=== PATIENT | male | born 1995 | race Caucasian/White ===

== ENCOUNTER 2020-07-10 13:53 | Emergency (ER) | payer BC, MEDICAID ==
[~2020-07-10] VITALS: Ht 175.3 cm; Wt 68.4 kg
--- NOTE | 2020-07-10 14:34 | REP ---
INDICATION: TRAUMA LEFT THUMB PAIN. COMPARISON: None. TECHNIQUE: Four views FINDINGS: Four views of the left thumb demonstrate normal bones, joints and soft tissues.. No fracture or subluxation is seen. No opaque foreign body noted. IMPRESSION: Negative left thumb series. <Electronically signed by Ignacio De Dios > 07/10/20 [id number]
[2020-07-10 14:48] VITALS: BP 125/78
== END 2020-07-10 15:15 | disposition home or self-care (01) ==
LOC: M ED 13:53
DX: S63.622A Sprain of interphalangeal joint of left thumb, initial encounter (principal); X58.XXXA Exposure to other specified factors, initial encounter; Y92.099 Unspecified place in other non-institutional residence as the place of occurrence of the external cause; Y93.9 Activity, unspecified; Y99.9 Unspecified external cause status; F17.200 Nicotine dependence, unspecified, uncomplicated; J30.9 Allergic rhinitis, unspecified

== ENCOUNTER 2020-07-31 09:34 | Emergency (ER) | payer BC ==
[~2020-07-31] VITALS: Ht 175.3 cm; Wt 69.8 kg
[2020-07-31 09:35] VITALS: BP 125/82
[2020-07-31] MEDS ORDERED: PROT20TA11 PO (09:54)
[2020-07-31] MEDS ORDERED: MONT5TAB2 (09:54)
[2020-07-31] MEDS ORDERED: CETI-24 (09:54)
[2020-07-31] MEDS ORDERED: HYDR25TAB (09:54)
[2020-07-31] MEDS ORDERED: SUCR1TA PO (09:54)
[2020-07-31] MEDS ORDERED: ANUS2.5C2 TOP (10:36)
[2020-07-31] MEDS ORDERED: MIRA3350 PO (10:36)
== END 2020-07-31 10:49 | disposition home or self-care (01) ==
LOC: M ED 09:34
DX: K64.5 Perianal venous thrombosis (principal); K62.5 Hemorrhage of anus and rectum; F17.200 Nicotine dependence, unspecified, uncomplicated; J45.909 Unspecified asthma, uncomplicated; Z79.899 Other long term (current) drug therapy; Z88.8 Allergy status to other drugs, medicaments and biological substances

== ENCOUNTER 2020-10-20 17:04 | Emergency (ER) | payer BC ==
[~2020-10-20] VITALS: Ht 175.3 cm; Wt 70.5 kg
[~2020-10-20 17:04] MED LIST: ANUS2.5C2 TOP; CETI-24; HYDR-3490; MIRA3350 PO; MONT10TA10; PROT20TA11 PO; SUCR1TA PO
--- OUTSIDE RECORDS SUMMARY | 2020-10-20 17:13 | CCD ---
Author Author [facility] Organization [facility] Address Unknown Phone Unavailable Care Team Providers Care Home Health Outreach Coordinator Name Role Phone Yudi Gallego Unavailable PROBLEMS Type Condition ICD9-CM Code [id number] Code Onset Dates Condition S tatus SNOMED Code Notes Problem Allergic rhinitis, seasonal J30.2 Active 3674 75131 Problem ADD (attention deficit disorder) F98.8 Active 367026957 Problem Constipation by delayed colonic transit K59.01 Active 68647691 Problem Chronic rhinitis J31.0 Active 44556350 Problem Sore throat J02.9 Active 975565561 Problem Asthma, unspecified asthma s everity, unspecified whether complicated, unspecified whether persistent J45.909 Active 28477 7001 Problem GERD without esophagitis K21.9 Active 7932798 05 Problem Smoking F17.200 Active 56697971 Problem Anxiety about health F41.8 Active 494964447 Problem Essential hypertension I10 Active 80871002 ALLERGIES Allergen (clinical drug ingredient) Drug/Non Drug Allergy do cumented on EMR Reaction Allergy Type Onset Date Status environmental sneezing Non Drug Allergy Activ e Gastrografin([facility] Code:[address]-11) vomiting Drug Aller gy Active ENCOUNTERS from 1993 to 2020-08-22 Encounter Location Date Provider Diagnosis [address] [address] Aug, Yudi Gallego Dysphonia R49.0 ; Productive cough R05 ; Hemorrhoids, unspecified hemorrhoid type K64.9 ; Asthma, unspecified asthma severity, unspecified whether complicated, unspecified whether persistent J45.909 ; GERD without esophagitis K21.9 and Smoking F17.200 IMMUNIZATIONS No Information SOCIAL HISTORY Sex Assigned At : Social History Observation Description Sex Assigned At Unknown REASON FOR REFERRAL No Information VITAL SIGNS Height 68.5 in Aug, Weight 155.6 lbs Aug, BMI 23.31 kg/m2 Aug, Heart Rate 102 /min Aug, Respiratory Rate 18 /min Aug, Oximetry 99 % Aug, Blood pressure systolic 130 mmHg Aug, Blood pressure diastolic 84 mmHg Aug, MEDICATIONS Medication SIG (Take, Route, Frequency, Duration) Notes Start Da te End Date Status Ibuprofen 800 MG 1 tablet Orally Three times a day for 30 day(s) Active Flonase 50 MCG/ACT 2 sprays Nasally Once a day for 90 days Oct, Active Singulair 10 MG 1 tablet in the evening Orally Once a day for 90 days Active Cetirizine HCl 10 MG 1 tablet as needed Orally Once a day for 90 days Mar, Active Carafate 1 GM 1 tablet at bedtime on an em pty stomach before meals Orally Twice a day for 30 day(s) Active Hydrochlorothiazide 25 MG 1 tablet Orally Once a day for 90 days Active Protonix 40 MG 1 tablet Orally Once a day for 90 days Active PROCEDURES No Information RESULTS No Results REASON FOR VISIT 3 week follow up MEDICAL (GENERAL) HISTORY Type Description Date Medical History GERD Medical History Allergic Rhinitis Medical History ADHD Medical History Bipolar disorder Medical History Anxiety Medical History HTN Surgical History Damari age 3 weeks Hospitalization History Surgical needs Hospitalization History PUD Hospitalization History Kidney infection Goals Section No Information Health Concerns No Information MEDICAL EQUIPMENT No Information MENTAL STATUS No Information FUNCTIONAL STATUS No Information ASSESSMENTS Encounter Date Diagnosis Assessment Notes Treatment Notes Treatm ent Clinical Notes Aug, Dysphonia (ICD-10 - R49.0) Encouraged to follow up with Dr. Payne as scheduled decrease or stop smoking Aug, Productive cough (ICD-10 - R05) chronic-stop smoking follow up with ent Aug, Hemorrhoids, unspecified hemorrhoid type (ICD-10 - K64.9) The patient had a thrombosed hemorrhoid. Advised to avoid straining during bowel movements. Encouraged sitz bath. Instructed to use stool softeners if he gets constipation. Advised to follow up if symptoms worsen or persist. Precautions given and patient verbalized understanding. Follow up as needed Aug, Asthma, unspecified asthma s everity, unspecified whether complicated, unspecified whether persistent (ICD-10 - J45.909) The patient has a history of asthma and is using regular inhaler as needed. Recommended to continue with current management. Follow up as needed Aug, GERD without esophagitis (ICD-10 - K21.9) Continue to use Protonix daily. May use Tums/Rolaids as needed for acute flares. Avoid trigger foods including spicy, acidic foods, peppermint and chocolate. Keep food diary to determine personal triggers. Do not eat or drink 2 hours before bed. Keep head of bed elevated. Weight loss will improve reflux. Aug, Smoking (ICD-10 - F17.200) The patient is a smoker, smokes 1 ppd. Discussed the risks and dangers of smoking. Strongly encouraged patient to quit smoking. Discussed various cessation options including nicotine patches, Chantix, and Zyban. Patient will get back to us about cessation Aug, Other Patient agrees w ith plan as outlined above. All questions were answered to the best of the provider's ability. Patient verbalized understanding of instructions and education provided. Patient to follow up at next appointment. Patient agrees if symptoms worsen or fail to improve they will return to the clinic or go to the ER Liana Ramesh, scribing the following service on behalf of CARIE Miller, on 08/22/2020 PLAN OF TREATMENT Treatment Notes Assessment Notes Clinical Notes Dysphonia Encouraged to follow up with Dr. Payne as scheduleddecrease or stop smoking Productive cough chronic-stop smoking follow up with ent Hemorrhoids, unspecified hemorrhoid type The patient h ad a thrombosed hemorrhoid. Advised to avoid straining during bowel movements. Encouraged sitz bath. Instructed to use stool softeners if he gets constipation. Advised to follow up if symptoms worsen or persist. Precautions given and patient verbalized understanding. Follow up as needed Asthma, unspecified asthma severity, uns pecified whether complicated, unspecified whether persistent The patient has a history of asthma and is using regular inhaler as needed. Recommended to continue with current management. Follow up as needed GERD without esophagitis Continue to use Protonix anton ly. May use Tums/Rolaids as needed for acute flares. Avoid trigger foods including spicy, acidic foods, peppermint and chocolate. Keep food diary to determine personal triggers. Do not eat or drink 2 hours before bed. Keep head of bed elevated. Weight loss will improve reflux. Smoking The patient is a smoker, smo kes 1 ppd. Discussed the risks and dangers of smoking. Strongly encouraged patient to quit smoking. Discussed various cessation options including nicotine patches, Chantix, and Zyban. Patient will get back to us about cessation Next Appt Details 3 Months Reason:follow up Provider Name:Michael Payne, 09-15 03:00:00 PM, [address] [place] [address], [phone], Provider Name:Yudi Gallego, 2020-10-03 02:30:00 PM, [address] [place] [address], [phone], Follow Up:3 Monthsfollow up Insurance Providers Payer Name Payer Address Payer Phone Insured Name Patient Relati onship to Insured Coverage Start Date Coverage End Date BCBS OUT OF STATE [address] [address] [facility] [address] DULCE GILLIAM self
--- OUTSIDE RECORDS SUMMARY | 2020-10-20 17:13 | CCD ---
Author Author [facility] Organization [facility] Address Unknown Phone Unavailable Care Team Providers Care Digital Campaign Manager Name Role Phone Arline Calle Unavailable PROBLEMS Type Condition ICD9-CM Code [id number] Code Onset Dates Condition S tatus SNOMED Code Notes Problem Sore throat J02.9 Active 729022447 Problem Allergic rhinitis, seasonal J30.2 Active 3674 83593 Problem ADD (attention deficit disorder) F98.8 Active 988271489 Problem Essential hypertension I10 Active 05517704 Problem Chronic rhinitis J31.0 Active 48819781 Problem Constipation by delayed colonic transit K59.01 Active 63103620 Problem GERD without esophagitis K21.9 Active 1463304 05 Problem Smoking F17.200 Active 89489310 Problem Anxiety about health F41.8 Active 524173460 ALLERGIES Allergen (clinical drug ingredient) Drug/Non Drug Allergy do cumented on EMR Reaction Allergy Type Onset Date Status environmental sneezing Non Drug Allergy Activ e Gastrografin([facility] Code:[address]-61) vomiting Drug Aller gy Active ENCOUNTERS from 1993 to 2020-08-01 Encounter Location Date Provider Diagnosis [address] [address] Aug, Arline Calle IMMUNIZATIONS No Information SOCIAL HISTORY Sex Assigned At : Social History Observation Description Sex Assigned At Unknown REASON FOR REFERRAL No Information VITAL SIGNS No information MEDICATIONS Medication SIG (Take, Route, Frequency, Duration) Notes Start Da te End Date Status Carafate 1 GM 1 tablet at bedtime on an em pty stomach before meals Orally Twice a day for 30 day(s) Active Singulair 10 MG 1 tablet in the evening Orally Once a day for 90 days Active Ibuprofen 800 MG 1 tablet Orally Three times a day for 30 day(s) Active Mucinex 600 MG 1 tablet as needed Orally every 12 hrs for 7 days Active Cetirizine HCl 10 MG 1 tablet as needed Orally Once a day for 90 days Mar, Active Hydrochlorothiazide 25 MG 1 tablet Orally Once a day for 90 days Active Protonix 40 MG 1 tablet Orally Once a day for 90 days Active RA Nicotine Gum 4 MG 1 piece for 30 minute as nee ded Mouth/Throat 24 time(s) a day for 90 days Jul, Active Flonase 50 MCG/ACT 2 sprays Nasally Once a day for 90 days Oct, Active PROCEDURES No Information RESULTS No Results REASON FOR VISIT Chest Xray Results MEDICAL (GENERAL) HISTORY Type Description Date Medical History GERD Medical History Allergies Medical History ADHD Medical History Bipolar disorder Medical History Anxiety Medical History HTN Surgical History Damari age 3 weeks Hospitalization History Surgical needs Hospitalization History PUD Hospitalization History Kidney infection Goals Section No Information Health Concerns No Information MEDICAL EQUIPMENT No Information MENTAL STATUS No Information FUNCTIONAL STATUS No Information ASSESSMENTS No Information PLAN OF TREATMENT Medication Medication Name Sig Start Date Stop Date Hydrochlorothiazide 25 MG 1 tablet Orally Once a day for 90 days Protonix 40 MG 1 tablet Orally Once a day for 90 days Flonase 50 MCG/ACT 2 sprays Nasally Once a day for 90 days 2015 RA Nicotine Gum 4 MG 1 piece for 30 minute as nee ded Mouth/Throat 24 time(s) a day for 90 days Jul, Singulair 10 MG 1 tablet in the evening Orally Once a day for 90 days Cetirizine HCl 10 MG 1 tablet as needed Orally Once a day fo r 90 days Mar, Next Appt Details Provider Name:Kristina Ruiz, 2020-08-02 0 3:00:00 PM, [address] [place] [address], [id number], Provider Name:Yudi Gallego, 2020-08-22 02:30:00 PM, [address] [place] [address], [phone], Insurance Providers Payer Name Payer Address Payer Phone Insured Name Patient Relati onship to Insured Coverage Start Date Coverage End Date BCBS OUT OF STATE [address] [address] [facility] [id number] DULCE GILLIAM
--- OUTSIDE RECORDS SUMMARY | 2020-10-20 17:13 | CCD ---
Author Author [facility] Organization [facility] Address Unknown Phone Unavailable Care Team Providers Care Firer Diesel Locomotive Name Role Phone Michael Payne Unavailable PROBLEMS Type Condition ICD9-CM Code [id number] Code Onset Dates Condition S tatus SNOMED Code Notes Problem ADD (attention deficit disorder) F98.8 Active 686580296 Problem Constipation by delayed colonic transit K59.01 Active 98111396 Problem GERD without esophagitis K21.9 Active 2296169 05 Problem Asthma, unspecified asthma s everity, unspecified whether complicated, unspecified whether persistent J45.909 Active 55683 7001 Problem Allergic rhinitis, seasonal J30.2 Active 3674 91958 Problem Chronic sinusitis, unspecified location J32.9 Active 05945995 Problem Sore throat J02.9 Active 147999604 Problem Smoking F17.200 Active 39051802 Problem Anxiety about health F41.8 Active 706913933 Problem Essential hypertension I10 Active 23821998 Problem Chronic rhinitis J31.0 Active 00500889 ALLERGIES Allergen (clinical drug ingredient) Drug/Non Drug Allergy do cumented on EMR Reaction Allergy Type Onset Date Status environmental sneezing Non Drug Allergy Activ e Gastrografin([facility] [place] [place] Code:[address]-82) vomiting Drug Aller gy Active ENCOUNTERS from 1993 to 2020-09-15 Encounter Location Date Provider Diagnosis [facility] [address] [place] [id number] 2020 Michael Payne Chronic sinusitis, unspecified location J32.9 and Hoarseness R49.0 IMMUNIZATIONS No Information SOCIAL HISTORY Sex Assigned At : Social History Observation Description Sex Assigned At Unknown REASON FOR REFERRAL No Information VITAL SIGNS Height 68.5 in Sep, Weight 152.4 lbs Sep, BMI 22.83 kg/m2 Sep, Temperature 98.6 degrees Fahrenheit Sep, Heart Rate 88 /min Sep, Respiratory Rate 17 /min Sep, Oximetry 96 % Sep, Blood pressure systolic 128 mmHg Sep, Blood pressure diastolic 70 mmHg Sep, MEDICATIONS Medication SIG (Take, Route, Frequency, Duration) Notes Start Da te End Date Status Ibuprofen 800 MG 1 tablet Orally Three times a day for 30 day(s) Active Protonix 40 MG 1 tablet Orally Once a day for 90 days Active Singulair 10 MG 1 tablet in the evening Orally Once a day for 90 days Active Hydrochlorothiazide 25 MG 1 tablet Orally Once a day for 90 days Active Flonase 50 MCG/ACT 2 sprays Nasally Once a day for 90 days Oct, Active Cipro 250 MG 3 tablet Orally every 12 hrs for 14 day(s) Sep, Active Carafate 1 GM 1 tablet at bedtime on an em pty stomach before meals Orally Twice a day for 30 day(s) Active Cetirizine HCl 10 MG 1 tablet as needed Orally Once a day for 90 days Mar, Active Fluticasone Propionate 50 MCG/ACT 2 spray in each nost ril Nasally Once a day for 30 day(s) Sep, Active PROCEDURES No Information RESULTS No Results REASON FOR VISIT scope MEDICAL (GENERAL) HISTORY Type Description Date Medical [...] Notes Treatment Notes Treatm ent Clinical Notes Sep, Chronic sinusitis, unspecified location (ICD-10 - J32.9) Sep, Hoarseness (ICD-10 - R49.0) Sep, Other Time Spent with Patient: 30 minutes PLAN OF TREATMENT Medication Medication Name Sig Start Date Stop Date Fluticasone Propionate 50 MCG/ACT 2 spray in each nost ril Nasally Once a day for 30 day(s) Sep, Cipro 250 MG 3 tablet Orally every 12 hrs for 14 day(s) 15 Kan n, 2020 Next Appt Details prn Reason: Provider Name:Yudi Gallego, 2020-10-03 02:30:00 PM, [address] [place] [address], [phone], Insurance Providers Payer Name Payer Address Payer Phone Insured Name Patient Relati onship to Insured Coverage Start Date Coverage End Date BCBS OUT OF STATE [address] [address] [facility] [address] DULCE GILLIAM self
--- OUTSIDE RECORDS SUMMARY | 2020-10-20 17:13 | CCD ---
Author Author [facility] Organization [facility] Address Unknown Phone Unavailable Care Team Providers Care Verification Lead Name Role Phone Michael Payne Unavailable PROBLEMS Type Condition ICD9-CM Code [id number] Code Onset Dates Condition S tatus SNOMED Code Notes Problem Allergic rhinitis, seasonal J30.2 Active 3674 84133 Problem ADD (attention deficit disorder) F98.8 Active 697925051 Problem Constipation by delayed colonic transit K59.01 Active 64670563 Problem Chronic rhinitis J31.0 Active 42244679 Problem Sore throat J02.9 Active 134825842 Problem Asthma, unspecified asthma s everity, unspecified whether complicated, unspecified whether persistent J45.909 Active 97798 7001 Problem GERD without esophagitis K21.9 Active 8586576 05 Problem Smoking F17.200 Active 88310666 Problem Anxiety about health F41.8 Active 322765853 Problem Essential hypertension I10 Active 08468267 ALLERGIES Allergen (clinical drug ingredient) Drug/Non Drug Allergy do cumented on EMR Reaction Allergy Type Onset Date Status environmental sneezing Non Drug Allergy Activ e Gastrografin([facility] Code:[address]-12) vomiting Drug Aller gy Active ENCOUNTERS from 1993 to 2020-08-22 Encounter Location Date Provider Diagnosis [address] [address] Aug, Michael Payne IMMUNIZATIONS No Information SOCIAL HISTORY Sex Assigned [...] Information RESULTS No Results REASON FOR VISIT need to reschedule appoint MEDICAL (GENERAL) HISTORY Type Description Date Medical [...] Information ASSESSMENTS No Information PLAN OF TREATMENT Next Appt Details Provider Name:Michael Payne, 09-15 03:00:00 PM, [address] [place] [address], [phone], Provider Name:Yudi Gallego, 2020-10-03 02:30:00 PM, [address] [place] [address], [phone], Insurance Providers Payer Name Payer Address Payer Phone Insured Name Patient Relati onship to Insured Coverage Start Date Coverage End Date BCBS OUT OF STATE [address] [address] [facility] [address] DULCE GILLIAM self
--- OUTSIDE RECORDS SUMMARY | 2020-10-20 17:13 | CCD ---
Author Author [facility] Organization [facility] Address Unknown Phone Unavailable Care Team Providers Care Independent Film Maker Name Role Phone Arline Calle Unavailable PROBLEMS Type Condition ICD9-CM Code [id number] Code Onset Dates Condition S tatus SNOMED Code Notes Problem Sore throat J02.9 Active 673485850 Problem Allergic rhinitis, seasonal J30.2 Active 3679 11505 Problem ADD (attention deficit disorder) F98.8 Active 006450186 Problem Essential hypertension I10 Active 78097688 Problem Chronic rhinitis J31.0 Active 58540451 Problem Constipation by delayed colonic transit K59.01 Active 20445732 Problem GERD without esophagitis K21.9 Active 9585328 05 Problem Smoking F17.200 Active 06583991 Problem Anxiety about health F41.8 Active 215981152 ALLERGIES Allergen (clinical drug ingredient) Drug/Non Drug Allergy do cumented on EMR Reaction Allergy Type Onset Date Status environmental sneezing Non Drug Allergy Activ e Gastrografin([facility] Code:[address]-35) vomiting Drug Aller gy Active ENCOUNTERS from 1993 to 2020-07-23 Encounter Location Date Provider Diagnosis [address] [address] Jul, Arline Calle Annual physical exam Z00.00 ; Abnormal sputum R09.3 ; Cough R05 ; Chest wall pain R07.89 ; Essential hypertension I10 ; Hoarseness R49.0 ; Chronic rhinitis J31.0 ; Smoking F17.200 ; GERD without esophagitis K21.9 ; Anxiety about health F41.8 and Influenza vaccination declined Z28.21 IMMUNIZATIONS No Information SOCIAL HISTORY Sex Assigned At : Social History Observation Description Sex Assigned At Unknown REASON FOR REFERRAL No Information VITAL SIGNS Height 68.5 in Jul, Weight 152.6 lbs Jul, BMI 22.86 kg/m2 Jul, Temperature 98.8 degrees Fahrenheit Jul, Heart Rate 96 /min Jul, Respiratory Rate 20 /min Jul, Oximetry 98 % Jul, Blood pressure systolic 148 mmHg Jul, Blood pressure diastolic 76 mmHg Jul, MEDICATIONS Medication SIG (Take, Route, Frequency, Duration) [...] Information RESULTS No Results REASON FOR VISIT transition of care MEDICAL (GENERAL) HISTORY Type Description Date Medical [...] Notes Treatment Notes Treatm ent Clinical Notes Jul, Annual physical exam (ICD-10 - Z00.00) - Follow up yearly for annual PE - Follow up as directed for routine condition monitoring - Follow up as needed for acute injury/illness/questions/concerns Health Maintenance: - Ensure diet high in fruits, vegetables, lean protein - Moderate alcohol, caffiene - Avoid tobacco - Obtain at least 120 mins of heart raising physical activity weekly - Wear seatbelt - Use CO and smoke detectors in home Screenings: - Start colonoscopy at age 48 unless otherwise directed - Obtain yearly fasting labs Jul, Abnormal sputum (ICD-10 - R09.3) Will get updated CXR and sputum sample for analysis. New referral entered to return to Pulmonary Jul, Cough (ICD-10 - R05) As above Jul, Chest wall pain (ICD-10 - R07.89) Discussed with patient that it is likely his chronic cough is causing his chest wall pain. Discussed his isolated symptoms to times of coughing and reviewed pathophysiology. Discussed if he were to develop shortness of breath, left arm pain, jaw pain, nausea, or vomiting then seek ER evaluation Jul, Essential hypertension (ICD-10 - I10) Blood pressure in the clinic today is elevated at 148/76 mmHg. Refilled his hydrochlorothiazide 25 mg one tablet once a day. Continue to take medications as prescribed. Things that you can do at home to improve and maintain a healthy blood pressure: - Decrease salt intake - Increase water intake - Decrease alcohol and caffeine intake - Increase exercise - Weight loss. Monitor blood pressure at home. Go to ER if you notice chest pain, shortness of breath, left arm pain, jaw pain, nausea, or vomiting EKG indicated NSR Jul, Hoarseness (ICD-10 - R49.0) Referral entered for eval Jul, Chronic rhinitis (ICD-10 - J31.0) Refilled his medications today. Recommended to continue with current management. Discussed how uncontrolled rhinitis can contribute to cough, hoarseness and sputum production Jul, Smoking (ICD-10 - F17.200) The patient is a smoker, smokes 1 ppd. Discussed the risks and dangers of smoking. Strongly encouraged patient to quit smoking. He is interested in starting nicotine gum. Medication sent in. Discussed how to utilize the gum to help with smoking cessation Jul, GERD without esophagitis (ICD-10 - K21.9) Continue to use Protonix 40 mg one tablet once a day and Carafate 1 gm one tablet b.i.d. May use Tums/Rolaids as needed for acute flares. Avoid trigger foods including spicy, acidic foods, peppermint and chocolate. Keep food diary to determine personal triggers. Do not eat or drink 2 hours before bed. Keep head of bed elevated. Weight loss will improve reflux. Jul, Anxiety about health (ICD-10 - F41.8) Encouraged to find family and friend support to talk to. Pt to report to the ED immediately with any thoughts of self-harm and/or harm to others. Pt v/u and agree. DALI positive. Discussed with patient. He reports this is very much associated with his health at this time. Declines to resume eval/treatment of mental health condition. Stable at this time. PHQ-9 negative. Jul, Influenza vaccination declined (ICD-10 - Z28.21) The patient declines influenza vaccination. He made aware that influenza is in the area and he will notify office if desired in the future. Jul, Other Patient agrees w ith plan as [...] scribing the following service on behalf of Arline Calle NP, on 07/21/2020. PLAN OF TREATMENT Medication Medication Name Sig [...] a day fo r 90 days Mar, Treatment Notes Assessment Notes Clinical Notes Annual physical exam - Follow up yearly for katie ramirez PE - Follow up as directed for routine condition monitoring - Follow up as needed for acute injury/illness/questions/concerns Health Maintenance: - Ensure diet high in frui ts, vegetables, lean protein - Moderate alcohol, caffiene - Avoid tobacco - Obtain at least 120 mins of heart raising physical activity weekly - Wear seatbelt - Use CO and smoke detectors in home Screenings: - Start colonoscopy at age 48 unless otherwise directed - Obtain yearly fasting labs Abnormal sputum Will get updated CXR and sputum sample for analysis. New referral entered to return to Pulmonary Cough As above Chest wall pain Discussed with miguel angel elizondo that it is likely his chronic cough is causing his chest wall pain. Discussed his isolated symptoms to times of coughing and reviewed pathophysiology. Discussed if he were to develop shortness of breath, left arm pain, jaw pain, nausea, or vomiting then seek ER evaluation Essential hypertension Blood pressure in the clinic today is elevated at 148/76 mmHg. Refilled his hydrochlorothiazide 25 mg one tablet once a day. Continue to take medications as prescribed. Things that you can do at home to improve and maintain a healthy blood pressure: - Decrease salt intake - Increase water intake - Decrease alcohol and caffeine intake - Increase exercise - Weight loss. Monitor blood pressure at home. Go to ER if you notice chest pain, shortness of breath, left arm pain, jaw pain, nausea, or vomiting EKG indicated NSR Hoarseness Referral entered for eval Chronic rhinitis Refilled his medications kian scruggs. Recommended to continue with current management. Discussed how uncontrolled rhinitis can contribute to cough, hoarseness and sputum production Smoking The patient is a smoker, smo kes 1 ppd. Discussed the risks and dangers of smoking. Strongly encouraged patient to quit smoking. He is interested in starting nicotine gum. Medication sent in. Discussed how to utilize the gum to help with smoking cessation GERD without esophagitis Continue to use Protonix 40 mg one tablet once a day and Carafate 1 gm one tablet b.i.d. May use Tums/Rolaids as needed for acute flares. Avoid trigger foods including spicy, acidic foods, peppermint and chocolate. Keep food diary to determine personal triggers. Do not eat or drink 2 hours before bed. Keep head of bed elevated. Weight loss will improve reflux. Anxiety about health Encouraged to find family an d friend support to talk to. Pt to report to the ED immediately with any thoughts of self-harm and/or harm to others. Pt v/u and agree. DALI positive. Discussed with patient. He reports this is very much associated with his health at this time. Declines to resume eval/treatment of mental health condition. Stable at this time. PHQ-9 negative. Influenza vaccination declined The patient declines in fluenza vaccination. He made aware that influenza is in the area and he will notify office if desired in the future. Treatment Notes Test Name Order Date CHEST 2 VIEWS 2020-07-23 COMPLETE METABOLIC PROLFILE 2020-07-23 TSH 2020-07-23 LIPID PROFILE 2020-07-23 FREE T4 2020-07-23 CBC W/DIFF 2020-07-23 URINALYSIS 2020-07-23 SPUTUM,CYTOLOGY 2020-07-23 EKG 2020-07-23 Next Appt Details 2-4 weeks Reason:Results Provider Name:Arline Calle, 2020-08-01 0 02:30:00 PM, [address] [place] [address], [phone], Follow Up:2-4 weeksResults Insurance Providers Payer Name Payer Address Payer Phone Insured Name Patient Relati onship to Insured Coverage Start Date Coverage End Date BCBS OUT OF STATE [address] [address] [facility] [phone] [address] self
--- OUTSIDE RECORDS SUMMARY | 2020-10-20 17:13 | CCD ---
Author Author [facility] Organization [facility] Address Unknown Phone Unavailable Care Team Providers Care Phd Internship Name Role Phone Arline Calle Unavailable PROBLEMS Type Condition ICD9-CM Code [id number] Code Onset Dates Condition S tatus SNOMED Code Notes Problem Allergic rhinitis, seasonal J30.2 Active 3674 87110 Problem ADD (attention deficit disorder) F98.8 Active 914193324 Problem Constipation by delayed colonic transit K59.01 Active 35585274 Problem Chronic rhinitis J31.0 Active 93995876 Problem Sore throat J02.9 Active 446146407 Problem Asthma, unspecified asthma s everity, unspecified whether complicated, unspecified whether persistent J45.909 Active 29530 7001 Problem GERD without esophagitis K21.9 Active 6586181 05 Problem Smoking F17.200 Active 52914936 Problem Anxiety about health F41.8 Active 632519257 Problem Essential hypertension I10 Active 18681869 ALLERGIES Allergen (clinical drug ingredient) Drug/Non Drug Allergy do cumented on EMR Reaction Allergy Type Onset Date Status environmental sneezing Non Drug Allergy Activ e Gastrografin([facility] Code:[address]-47) vomiting Drug Aller gy Active ENCOUNTERS from 1993 to 2020-09-05 Encounter Location Date Provider Diagnosis [address] [address] Sep, Arline Calle IMMUNIZATIONS No Information SOCIAL HISTORY [...] Information RESULTS No Results REASON FOR VISIT Labs MEDICAL (GENERAL) HISTORY Type Description Date Medical [...] Details Provider Name:Michael Payne, 09-15 03:00:00 PM, [address] [place] [address], [id number], Provider Name:Yudi Gallego, 2020-10-03 02:30:00 PM, [address] [place] [address], [phone], Insurance Providers Payer Name Payer Address Payer Phone Insured Name Patient Relati onship to Insured Coverage Start Date Coverage End Date BCBS OUT OF STATE [address] [address] [facility] [id number] [address] [address]
--- OUTSIDE RECORDS SUMMARY | 2020-10-20 17:13 | CCD ---
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 Name Role Phone Emma BAY PA Unavailable Unavailable Emma BAY CHRISTEDI PA Unavailable Unavailable Emma BAY CHRISTOPHER PA Unavailable Unavailable SYMENOWEmma CHRISTOPHER PA Unavailable Unavailable SYMENOW, G CHRISTOPHER PA Unavailable Unavailable Emma BAY CHRISTOPHER PA Unavailable Unavailable ROBBIEENOEmma Ramon CHRISTOPHER PA Unavailable Unavailable SYMENOWEmma CHRISTOPHER PA Unavailable Unavailable SYMENOW G CHRISTOPHER PA Unavailable Unavailable SYMENOW, G CHRISTOPHER PA Unavailable Unavailable SYMENOW, G CHRISTOPHER PA Unavailable Unavailable SYMENOW, G CHRISTOPHER PA Unavailable Unavailable SYMENOW, G CHRISTOPHER PA Unavailable Unavailable SYMENOW, G CHRISTOPHER PA Unavailable Unavailable SYMENOW, G CHRISTOPHER PA Unavailable Unavailable SYMENOW, G CHRISTOPHER PA Unavailable Unavailable SYMENOW, G CHRISTOPHER PA Unavailable Unavailable Luc, L Arline PIPELINE OPERATOR Unavailable Unavailable Isle, L Arline PIPELINE OPERATOR Unavailable Unavailable Luc, L Arline PIPELINE OPERATOR Unavailable Unavailable Isle, L Arline PIPELINE OPERATOR Unavailable Unavailable Luc, L Arline PIPELINE OPERATOR Unavailable Unavailable Luc, L Arline PIPELINE OPERATOR Unavailable Unavailable Isle, L Arline PIPELINE OPERATOR Unavailable Unavailable Luc, L Arline PIPELINE OPERATOR Unavailable Unavailable Luc, L Arline PIPELINE OPERATOR Unavailable Unavailable Isle, L Arline PIPELINE OPERATOR Unavailable Unavailable Isle, L Arline PIPELINE OPERATOR Unavailable Unavailable Luc, L Arline PIPELINE OPERATOR Unavailable Unavailable Isle, L Arline PIPELINE OPERATOR Unavailable Unavailable Luc, L Arline PIPELINE OPERATOR Unavailable Unavailable Isle, L Arline PIPELINE OPERATOR Unavailable Unavailable Isle, L Arline PIPELINE OPERATOR Unavailable Unavailable Isle, L Arline PIPELINE OPERATOR Unavailable Unavailable Isle, L Arline PIPELINE OPERATOR Unavailable Unavailable Luc, L Arline PIPELINE OPERATOR Unavailable Unavailable Luc, L Arline PIPELINE OPERATOR Unavailable Unavailable Luc, L Arline PIPELINE OPERATOR Unavailable Unavailable Luc, L Arline PIPELINE OPERATOR Unavailable Unavailable Isle, L Arline PIPELINE OPERATOR Unavailable Unavailable Isle, L Arline PIPELINE OPERATOR Unavailable Unavailable Isle, L Arline PIPELINE OPERATOR Unavailable Unavailable Isle, L Arline PIPELINE OPERATOR Unavailable Unavailable Isle, L Arline PIPELINE OPERATOR Unavailable Unavailable Isle, L Arline PIPELINE OPERATOR Unavailable Unavailable Isle, L Arline PIPELINE OPERATOR Unavailable Unavailable Isle, L Arline PIPELINE OPERATOR Unavailable Unavailable Luc, L Arline PIPELINE OPERATOR Unavailable Unavailable Isle, L Arline PIPELINE OPERATOR Unavailable Unavailable Coon, T Gregory PA-C Unavailable Unavailable Coon, T Gregory PA-C Unavailable Unavailable Coon, T Gregory PA-C Unavailable Unavailable Coon, T Gregory PA-C Unavailable Unavailable Coon, T Gregory PA-C Unavailable Unavailable Coon, T Gregory PA-C Unavailable Unavailable Coon, T Gregory PA-C Unavailable Unavailable Coon, T Gregory PA-C Unavailable Unavailable Coon, T Gregory PA-C Unavailable Unavailable Coon, T Gregory PA-C Unavailable Unavailable Coon, T Gregory PA-C Unavailable Unavailable Coon, T Gregory PA-C Unavailable Unavailable Coon, T Gregory PA-C Unavailable Unavailable Coon, T Gregory PA-C Unavailable Unavailable Coon, T Gregory PA-C Unavailable Unavailable Coon, T Gregory PA-C Unavailable Unavailable Coon, T Gregory PA-C Unavailable Unavailable Coon, T Gregory PA-C Unavailable Unavailable Coon, T Gregory PA-C Unavailable Unavailable Coon, T Gregory PA-C Unavailable Unavailable Coon, T Gregory PA-C Unavailable Unavailable Coon, T Gregory PA-C Unavailable Unavailable Coon, T Gregory PA-C Unavailable Unavailable Coon, T Gregory PA-C Unavailable Unavailable Coon, T Gregory PA-C Unavailable Unavailable Coon, T Gregory PA-C Unavailable Unavailable Coon, T Gregory PA-C Unavailable Unavailable Coon, T Gregory PA-C Unavailable Unavailable Coon, T Gregory PA-C Unavailable Unavailable Coon, T Gregory PA-C Unavailable Unavailable Coon, T Gregory PA-C Unavailable Unavailable Coon, T Gregory PA-C Unavailable Unavailable Coon, T Gregory PA-C Unavailable Unavailable Coon, T Gregory PA-C Unavailable Unavailable Coon, T Gregory PA-C Unavailable Unavailable Coon, T Gregory PA-C Unavailable Unavailable Coon, T Gregory PA-C Unavailable Unavailable PRISCILLA, L ERIN PA Unavailable Unavailable PRISCILLA, L ERIN PA Unavailable Unavailable PRISCILLA, L ERIN PA Unavailable Unavailable PRISCILLA, L ERIN PA Unavailable Unavailable PRISCILLA, L ERIN PA Unavailable Unavailable PRISCILLA, L ERIN PA Unavailable Unavailable PRISCILLA, L ERIN PA Unavailable Unavailable PRISCILLA, L ERIN PA Unavailable Unavailable PRISCILLA, L ERIN PA Unavailable Unavailable PRISCILLA, L ERIN PA Unavailable Unavailable PRISCILLA, L ERIN PA Unavailable Unavailable PRISCILLA, L ERIN PA Unavailable Unavailable PRISCILLA, L ERIN PA Unavailable Unavailable PRISCILLA, L ERIN PA Unavailable Unavailable PRISCILLA, L ERIN PA Unavailable Unavailable PRISCILLA, L ERIN PA Unavailable Unavailable PRISCILLA, L ERIN PA Unavailable Unavailable PRISCILLA, L ERIN PA Unavailable Unavailable PRISCILLA, L ERIN PA Unavailable Unavailable BLANCHARD SR, LEI JENKINS MD Unavailable Unavailable BLANCHARD SR, LEI JENKINS MD Unavailable Unavailable BLANCHARD SR, LEI JENKINS MD Unavailable Unavailable BLANCHARD SR, LEI JENKINS MD Unavailable Unavailable BLANCHARD SR, LEI JENKINS MD Unavailable Unavailable BLANCHARD SR, LEI JENKINS MD Unavailable Unavailable BLANCHARD SR, LEI JENKINS MD Unavailable Unavailable BLANCHARD SR, LEI JENKINS MD Unavailable Unavailable BLANCHARD SR, LEI JENKINS MD Unavailable Unavailable BLANCHARD SR, LEI JENKINS MD Unavailable Unavailable BLANCHARD SR, LEI JENKINS MD Unavailable Unavailable BLANCHARD SR, LEI JENKINS MD Unavailable Unavailable BLANCHARD SR, LEI JENKINS MD Unavailable Unavailable BLANCHARD SR, LEI JENKINS MD Unavailable Unavailable BLANCHARD SR, LEI JENKINS MD Unavailable Unavailable BLANCHARD SR, LEI JENKINS MD Unavailable Unavailable BLANCHARD SR, LEI JENKINS MD Unavailable Unavailable BLANCHARD SR, LEI JENKINS MD Unavailable Unavailable BLANCHARD SR, LEI JENKINS MD Unavailable Unavailable BLANCHARD SR, LEI JENKINS MD Unavailable Unavailable BLANCHARD SR, LEI JENKINS MD Unavailable Unavailable BLANCHARD SR, LEI JENKINS MD Unavailable Unavailable BLANCHARD SR, LEI JENKINS MD Unavailable Unavailable BLANCHARD SR, LEI JENKINS MD Unavailable Unavailable BLANCHARD SR, LEI JENKINS MD Unavailable Unavailable BLANCHARD SR, LEI JENKINS MD Unavailable Unavailable BLANCHARD SR, LEI JENKINS MD Unavailable Unavailable BLANCHARD SR, LEI JENKINS MD Unavailable Unavailable BLANCHARD SR, LEI JENKINS MD Unavailable Unavailable BLANCHARD SR, LEI JENKINS MD Unavailable Unavailable BLANCHARD SR, LEI JENKINS MD Unavailable Unavailable BLANCHARD SR, LEI JENKINS MD Unavailable Unavailable BLANCHARD SR, LEI JENKINS MD Unavailable Unavailable BLANCHARD SR, LEI JENKINS MD Unavailable Unavailable BLANCHARD SR, LEI JENKINS MD Unavailable Unavailable BLANCHARD SR, LEI JENKINS MD Unavailable Unavailable BLANCHARD SR, LEI JENKINS MD Unavailable Unavailable BLANCHARD SR, LEI JENKINS MD Unavailable Unavailable BLANCHARD SR, LEI JENKINS MD Unavailable Unavailable BLANCHARD SR, LEI JENKINS MD Unavailable Unavailable BLANCHARD SR, LEI JENKINS MD Unavailable Unavailable BLANCHARD SR, LEI JENKINS MD Unavailable Unavailable BLANCHARD SR, LEI JENKINS MD Unavailable Unavailable BLANCHARD SR, LEI JENKINS MD Unavailable Unavailable BLANCHARD SR, LEI JENKINS MD Unavailable Unavailable BLANCHARD SR, LEI JENIKNS MD Unavailable Unavailable BLANCHARD SR, LEI JENKINS MD Unavailable Unavailable BLANCHARD SR, LEI JENKINS MD Unavailable Unavailable BLANCHARD SR, LEI JENKINS MD Unavailable Unavailable BLANCHARD SR, LEI JENKINS MD Unavailable Unavailable BLANCHARD SR, LEI JENKINS MD Unavailable Unavailable BLANCHARD SR, LEI JENKINS MD Unavailable Unavailable BLANCHARD SR, LEI JENKINS MD Unavailable Unavailable BLANCHARD SR, LEI JENKINS MD Unavailable Unavailable [place], Yudi RPA-C Unavailable Unavailable [place], Yudi RPA-C Unavailable Unavailable [place], Yudi RPA-C Unavailable Unavailable [place], Yudi RPA-C Unavailable Unavailable [place], Yudi RPA-C Unavailable Unavailable [place], Yudi RPA-C Unavailable Unavailable [place], Yudi RPA-C Unavailable Unavailable [place], Yudi RPA-C Unavailable Unavailable [place], Yudi RPA-C Unavailable Unavailable [place], Yudi RPA-C Unavailable Unavailable [place], Yudi RPA-C Unavailable Unavailable [place], Yudi RPA-C Unavailable Unavailable [place], Yudi RPA-C Unavailable Unavailable [place], Yudi RPA-C Unavailable Unavailable [place], Yudi RPA-C Unavailable Unavailable Zion Bond Unavailable Unavailable Varun, L Cassandra PA Unavailable Unavailable Varun, L Cassandra PA Unavailable Unavailable Varun, L Cassandra PA Unavailable Unavailable Varun, L Cassandra PA Unavailable Unavailable Varun, L Cassandra PA Unavailable Unavailable Varun, L Cassandra PA Unavailable Unavailable Varun, L Cassandra PA Unavailable Unavailable Varun, L Cassandra PA Unavailable Unavailable Varun, L Cassandra PA Unavailable Unavailable Varun, L Cassandra PA Unavailable Unavailable Varun, L Cassandra PA Unavailable Unavailable Varun, L Cassandra PA Unavailable Unavailable Varun, L Cassandra PA Unavailable Unavailable Varun, L Csasandra PA Unavailable Unavailable Varun, L Cassandra PA Unavailable Unavailable Varun, L Cassandra PA Unavailable Unavailable Varun, L Cassandra PA Unavailable Unavailable Varun, L Cassandra PA Unavailable Unavailable Varun, L Cassandra PA Unavailable Unavailable Varun, L Cassandra PA Unavailable Unavailable Varun, L Cassandra PA Unavailable Unavailable Varun, L Cassandra PA Unavailable Unavailable Varun, L Cassandra PA Unavailable Unavailable Varun, L Cassandra PA Unavailable Unavailable Varun, L Cassandra PA Unavailable Unavailable Varun, L Cassandra PA Unavailable Unavailable Varun, L Cassandra PA Unavailable Unavailable Varun, L Cassandra PA Unavailable Unavailable Varun, L Cassandra PA Unavailable Unavailable Varun, L Cassandra PA Unavailable Unavailable Varun, L Cassandra PA Unavailable Unavailable Varun, L Cassandra PA Unavailable Unavailable Varun, L Cassandra PA Unavailable Unavailable Varun, L Cassandra PA Unavailable Unavailable Varun, L Cassandra PA Unavailable Unavailable Varun, L Cassandra PA Unavailable Unavailable Varun, L Cassandra PA Unavailable Unavailable Varun, L Cassandra PA Unavailable Unavailable Varun, L Cassandra PA Unavailable Unavailable Varun, L Cassandra PA Unavailable Unavailable Varun, L Cassandra PA Unavailable Unavailable Varun, L Cassandra PA Unavailable Unavailable Varun, L Cassandra PA Unavailable Unavailable Varun, L Cassandra PA Unavailable Unavailable Varun, L Cassandra PA Unavailable Unavailable Varun, L Cassandra PA Unavailable Unavailable Varun, L Cassandra PA Unavailable Unavailable Varun, L Cassandra PA Unavailable Unavailable Varun, L Cassandra PA Unavailable Unavailable Varun, L Cassandra PA Unavailable Unavailable Varun, L Cassandra PA Unavailable Unavailable Varun, L Cassandra PA Unavailable Unavailable Varun, L Cassandra PA Unavailable Unavailable Varun, L Cassandra PA Unavailable Unavailable Varun, L Cassandra PA Unavailable Unavailable Varun, L Cassandra PA Unavailable Unavailable Varun, L Cassandra PA Unavailable Unavailable Varun, L Cassandra PA Unavailable Unavailable Varun, L Cassandra PA Unavailable Unavailable Varun, L Cassandra PA Unavailable Unavailable Varun, L Cassandra PA Unavailable Unavailable MOUSTAPHA, @ JOCELYNE Unavailable Unavailable COLE, @ MICHAELA Unavailable Unavailable KAVININ, Alexi. MOHAN Unavailable [phone] WERBLIN, Alexi. MOHAN Unavailable [phone] WERBLIN, AlexiPeter MOHAN Unavailable [phone] WERBLIN, AlexiPeter MOHAN Unavailable [phone] WERBLIN, AlexiPeter MOHAN Unavailable [phone] Sara, Reginayannick W Kristina RECORDIST-C Unavailable Unavailabl e Sara, Reginayannick W Kristina RECORDIST-C Unavailable Unavailabl e Sara, Reginayannick W Kristina RECORDIST-C Unavailable Unavailabl e Sara, Reginayannick W Kristina RECORDIST-C Unavailable Unavailabl e Sara, Reginayannick W Kristina RECORDIST-C Unavailable Unavailabl e Sara, Reginayannick W Kristina RECORDIST-C Unavailable Unavailabl e Sara, Reginayannick W Kristina RECORDIST-C Unavailable Unavailabl e Sara, Reginayannick W Kristina RECORDIST-C Unavailable Unavailabl e Sara, Reginah W Kristina RECORDIST-C Unavailable Unavailabl e Sara, Reginayannick W Kristina RECORDIST-C Unavailable Unavailabl e Sara, Reginayannick W Kristina RECORDIST-C Unavailable Unavailabl e Sara, Reginayannick W Kristina RECORDIST-C Unavailable Unavailabl e Sara, Reginayannick W Kristina RECORDIST-C Unavailable Unavailabl e Sara, Reginayannick W Kristina RECORDIST-C Unavailable Unavailabl e Sara, Reginayannick W Kristina RECORDIST-C Unavailable Unavailabl e Sara, Gabby Acevedo RECORDIST-C Unavailable Unavailabl e Sara, Gabby Lopeze RECORDIST-C Unavailable Unavailabl e Sara, Gabby Lopeze RECORDIST-C Unavailable Unavailabl e Sara, Gabby Lopeze RECORDIST-C Unavailable Unavailabl e Sara, Gabby Lopeze RECORDIST-C Unavailable Unavailabl e Sara, Gabby Lopeze RECORDIST-C Unavailable Unavailabl e Sara, Gabby Calderonyce RECORDIST-C Unavailable Unavailabl e Sara, Gabby Calderonyce RECORDIST-C Unavailable Unavailabl e Sara, Gabby Lopeze RECORDIST-C Unavailable Unavailabl e Sara, Gabby Calderonyce RECORDIST-C Unavailable Unavailabl e Sara, Gabby Lopeze RECORDIST-C Unavailable Unavailabl e Sara, Gabby Acevedo RECORDIST-C Unavailable Unavailabl e Sara, Gabby Lopeze RECORDIST-C Unavailable Unavailabl e Sara, Gabby Calderonyce RECORDIST-C Unavailable Unavailabl e Sara, Gabby Acevedo RECORDIST-C Unavailable Unavailabl e Sara, Gabby Acevedo RECORDIST-C Unavailable Unavailabl e Sara, Gabby Calderonyce RECORDIST-C Unavailable Unavailabl e FISHER, ADRIANA LAKE Unavailable Unavailable Isle, L Arline PIPELINE OPERATOR Unavailable Unavailable Luc, L Arline PIPELINE OPERATOR Unavailable Unavailable Luc, L Arline PIPELINE OPERATOR Unavailable Unavailable Isle, L Arline PIPELINE OPERATOR Unavailable Unavailable Isle, L Arline PIPELINE OPERATOR Unavailable Unavailable Isle, L Arline PIPELINE OPERATOR Unavailable Unavailable Luc, L Arline PIPELINE OPERATOR Unavailable Unavailable Luc, L Arline PIPELINE OPERATOR Unavailable Unavailable Isle, L Arline PIPELINE OPERATOR Unavailable Unavailable Isle, L Arline PIPELINE OPERATOR Unavailable Unavailable Isle, L Arline PIPELINE OPERATOR Unavailable Unavailable Isle, L Arline PIPELINE OPERATOR Unavailable Unavailable Luc, L Arline PIPELINE OPERATOR Unavailable Unavailable Luc, L Arline PIPELINE OPERATOR Unavailable Unavailable Isle, L Arline PIPELINE OPERATOR Unavailable Unavailable Isle, L Arline PIPELINE OPERATOR Unavailable Unavailable Luc, L Arline PIPELINE OPERATOR Unavailable Unavailable Luc, L Arline PIPELINE OPERATOR Unavailable Unavailable Luc, L Arline PIPELINE OPERATOR Unavailable Unavailable Isle, L Arline PIPELINE OPERATOR Unavailable Unavailable Isle, L Arline PIPELINE OPERATOR Unavailable Unavailable Luc, L Arline PIPELINE OPERATOR Unavailable Unavailable Luc, L Arline PIPELINE OPERATOR Unavailable Unavailable Isle, L Arline PIPELINE OPERATOR Unavailable Unavailable Luc, L Arline PIPELINE OPERATOR Unavailable Unavailable Luc, L Arline PIPELINE OPERATOR Unavailable Unavailable Luc, L Arline PIPELINE OPERATOR Unavailable Unavailable Luc, L Arline PIPELINE OPERATOR Unavailable Unavailable Isle, L Arline PIPELINE OPERATOR Unavailable Unavailable Luc, L Arline PIPELINE OPERATOR Unavailable Unavailable Isle, L Arline PIPELINE OPERATOR Unavailable Unavailable Luc, L Arline PIPELINE OPERATOR Unavailable Unavailable Re-disclosure Warning The records that you are about to access may contain information from federally-assisted alcohol or drug abuse programs. If such information is present, then the following federally mandated warning applies: This information has been disclosed to you from records protected by federal confidentiality rules (42 CFR part 2). The federal rules prohibit you from making any further disclosure of this information unless further disclosure is expressly permitted by the written consent of the person to whom it pertains or as otherwise permitted by 42 CFR part 2. A general authorization for the release of medical or other information is NOT sufficient for this purpose. The Federal rules restrict any use of the information to criminally investigate or prosecute any alcohol or drug abuse patient.The records that you are about to access may contain highly sensitive health information, the redisclosure of which is protected by Article 27-F of the [facility] Public Health law. If you continue you may have access to information: Regarding HIV / AIDS; Provided by facilities licensed or operated by the [facility] Office of Mental Health; or Provided by the [facility] Office for People With Developmental Disabilities. If such information is present, then the following [facility] mandated warning applies: This information has been disclosed to you from confidential records which are protected by state law. State law prohibits you from making any further disclosure of this information without the specific written consent of the person to whom it pertains, or as otherwise permitted by law. Any unauthorized further disclosure in violation of state law may result in a fine or half-way sentence or both. A general authorization for the release of medical or other information is NOT sufficient authorization for further disc losure. Encounters Encounter Providers Location Date Indications Data Source(s ) Outpatient Attender: MICHAELA GALVAN 09/15/2020 02:54:00 PM [facility] 09/15/2020 12:00:00 AM EST eCW1 ([facility]) Outpatient Attender: Arline FOLEY ER-LAB-PNP 09/14/2020 12:00:00 PM [facility] Outpatient [facility] 09/12/2020 12:00:00 AM EST eCW1 ([facility]) Outpatient Attender: Arline Calle RNPReferrer: Migue FOLEY EMERGENCY ROOM-LAB 09/08/2020 09:45:00 AM EST - 09/08/2020 09:45:00 AM [facility] Outpatient [facility] 09/05/2020 12:00:00 AM EST eCW1 ([facility]) Outpatient Attender: Yudi Gallego RPA-C 08/22/2020 02:15: 00 PM [facility] Outpatient [facility] 08/22/2020 12:00:00 AM EST eCW1 ([facility]) Outpatient [facility] 08/09/2020 12:00:00 AM EST eCW1 ([facility]) Outpatient Attender: JOCELYNE GERARD 08/03/2020 01:30:0 0 PM [facility] Outpatient Attender: Kristina Ruiz RECORDIST-C 08/02/2020 02:43:0 0 PM [facility] Outpatient [facility] 08/02/2020 12:00:00 AM EST eCW1 ([facility]) Outpatient [facility] 08/01/2020 12:00:00 AM EST eCW1 ([facility]) Outpatient [facility] 08/01/2020 12:00:00 AM EST eCW1 ([facility]) Outpatient Attender: Arline Calle RNPReferrer: Arline FOLEY 07/31/2020 04:55:00 PM EST - 07/31/2020 04:55:00 PM [facility]: Arline FOLEY 07/21/2020 03:00:00 PM [facility] Outpatient [facility] 07/21/2020 12:00:00 AM EST eCW1 ([facility]) Emergency Attender: ALEKSANDRA FISHERReferrer: GREGORY Bang SR 07/20/2019 02:51:00 PM [facility] - 07/20/2019 03:12:00 PM [facility] Patient discharged. Emergency Attender: ALEKSANDRA FISHERReferrer: GREGORY Bang SR 02/05/2019 01:15:00 PM EDT - 02/05/2019 01:45:00 PM EDT [facility] Patient discharged. Emergency Attender: JOCELYNE BAY PAReferrer: GREGORY BLANCHARD SR 07/28/2018 09:24:00 AM EST - 07/28/2018 10:29:00 AM [facility] Emergency Attender: JOCELYNE BAY PAReferrer : GREGORY BLANCHARD EMERGENCY ROOM-ER 01/19/2018 08:54:00 PM EDT - 01/19/2018 10:42:00 PM [facility] Emergency Attender: ERIN DARNELL 10/31 04:57:00 PM EDT - 11/24/2017 05:55:00 PM [facility] Outpatient Attender: GREGORY BLANCHARD SR EMERGENCY ROOM-LAB 11:13:00 AM EDT - 12/18/2016 11:13:00 AM [facility] Outpatient Attender: Cassandra DARNELL 08/02/2016 05:14:0 0 PM [facility] Emergency Attender: MOHAN MENESES EMERGENCY ROOM-ER 05/26 04:40:00 PM EDT - 05/26/2016 07:24:00 PM [facility] Emergency Attender: MOHAN MENESES 016 11:41:00 AM [facility] - 10/26/2015 01:38:00 PM [facility] Outpatient Attender: Gregory Coon PA-C 10/21/2014 12:00:00 PM [facility] Medications Medication Brand Name Start Date Product Form Dose Route Admi nistrative Instructions Pharmacy Instructions Status Indications Reaction Description Data Source(s) Fluticasone Propionate 50 MCG/ACT Fluticasone Propionate 50 MCG/ACT 09/15/2020 12:00:00 AM EST 2.0 {spray_in_each_nostril} acti ve Fluticasone Propionate 50 MCG/ACT eCW1 ([facility]) Ciprofloxacin 250 MG Oral Tablet [Cipro] Cipro 250 MG Cipro 250 MG 09/15/2020 12:00:00 AM EST 3.0 {tablet} active Ci pro 250 MG eCW1 ([facility]) RA Nicotine Gum 4 MG RA Nicotine Gum 4 MG 07/22/2020 12:00:00 AM EST active RA Nicotine Gum 4 MG eCW1 ([facility]) RA Nicotine Gum 4 MG RA Nicotine Gum 4 MG 07/22/2020 12:00:00 AM EST active RA Nicotine Gum 4 MG eCW1 ([facility]) Insurance Providers Payer name Policy type / Coverage type Policy ID Covered constitution party ID Covered constitution party's relationship to matthews Policy [place] Plan Information [employer] [place] P[place] 302/307 [id number] SP [id number] [employer] [place] [id number] S W [id number] [employer] [place] [id number] S W [id number] MEDICARE [id number] S [id number] MEDICAID [id number] MEDICARE [id number] S [id number] [employer] [place] [id number] S [id number] [employer] [place] [id number] S [id number] MEDICAID [id number] S [id number] [place] [employer] [id number] S [id number] [place] [id number] S [id number] MEDICAID [id number] S [id number] [place] [employer] [id number] S [id number] [place] [id number] S [id number] [place] [employer] [id number] S [id number] [place] [id number] S [id number] MEDICAID [id number] S [id number] [place] 302/307 [id number] SP [id number] [place] [id number] SP [id number] [place] [employer] [id number] S [id number] [place] [id number] S [id number] MEDICAID [id number] SELF PAY UNAVAILABLE S UNAVAILA BLE MEDICAID [id number] S [id number] ANS-Medicaid [id number] ANSI-Commercial [id number] ANSI-Medicare Part B [id number] ANSI-Medicaid [id number] ANSI-Medicare Part B [id number] ANSI-Commercial [id number] MEDICAID [id number] S [id number] MEDICARE [id number] SP [id number] MEDICAID [id number] SP [id number] MEDICARE [id number] SP [id number] [address] [place] [address] [id number] S [id number] MEDICARE [id number] S [id number] MEDICARE A [id number] Self [id number] MEDICAID [id number] Self [id number] MEDICAID - O/P EMERGENCY ROOM [id number] MEDICAID - CLINIC [id number] Problems, Conditions, and Diagnoses Code Display Name Description Problem Type Effective Dates Data Source(s) J32.9 [id number] Chronic sinusitis, unspecified location P zanelegary 09/15/2020 12:00:00 AM EST eCW1 ([facility]) J45.909 [id number] Asthma, unspecified asthma severity, unspecified whether complicated, unspecified whether persistent Problem 08/22/2020 12:00 :00 AM EST W1 ([facility]) F41.8 [id number] Anxiety about health Problem 07/23/2020 12:0 0:00 AM EST W1 ([facility]) J31.0 08219522 Chronic rhinitis Problem 07/21/2020 12:00:00 AM EST [facility] ([facility]) I10 72930706 Essential hypertension Problem 07/21/2020 12 :00:00 AM EST W1 ([facility]) F17.200 44661383 Smoking Problem 07/21/2020 12:00:00 AM [place] [address] ([facility]) K21.9 191335486 GERD without esophagitis Problem 07/21/2020 12:00:00 AM EST [facility] ([facility]) R49.0 Dysphonia DYSPHONIA Diagnosis 09/15/2020 02:54:00 PM [facility] J32.9 Chronic sinusitis, unspecified CHRONIC SINUSITIS, UNSP ECIFIED Diagnosis 09/15/2020 02:54:00 PM [facility] R09.3 Abnormal sputum ABNORMAL SPUTUM Diagnosis 09/14/2020 12:0 0:00 PM [facility] K21.9 Gastro-esophageal reflux disease without esophagitis GASTRO-ESOPHAGEAL REFLUX DISEASE WITHOUT Diagnosis 09/08/2020 09:45:00 AM [facility] ital I10 Essential (primary) hypertension ESSENTIAL (PRIMARY) H YPERTENSION Diagnosis 09/08/2020 09:45:00 AM [facility] R09.3 Abnormal sputum ABNORMAL SPUTUM Diagnosis 09/08/2020 09:4 5:00 AM [facility] F17.210 Nicotine dependence, cigarettes, uncompl icated NICOTINE DEPENDENCE, CIGARETTES, UNCOMPLICATED Diagnosis 08/22/2020 02:15:00 PM [facility] ospital J45.909 Unspecified asthma, uncomplicated UNSPECIFIED THMA, UNCOMPLICATED Diagnosis 08/22/2020 02:15:00 PM [facility] K64.9 Unspecified hemorrhoids UNSPECIFIED HEMORRHOIDS Diagno sis 08/22/2020 02:15:00 PM [facility] R05 Cough COUGH Diagnosis 08/22/2020 02:15:00 PM [facility] K64.5 Perianal venous thrombosis PERIANAL VENOUS THROMBOSIS Diagnosis 08/03/2020 01:30:00 PM [facility] Z28.21 Immunization not carried out because of patient refusal IMMUNIZATION NOT CARRIED OUT BECAUSE OF PATIENT RE Diagnosis 07/21/2020 03:00:00 PM [facility] F41.8 Other specified anxiety disorders OTHER SPECIFIE D ANXIETY DISORDERS Diagnosis 07/21/2020 03:00:00 PM [facility] J31.0 Chronic rhinitis CHRONIC RHINITIS Diagnosis 07/21/2020 03 :00:00 PM [facility] R07.89 Other chest pain OTHER CHEST PAIN Diagnosis 07/21/2020 03 :00:00 PM [facility] Z00.00 Encounter for general adult medical examination without abnormal findings ENCNTR FOR GENERAL ADULT MEDICAL EXAM W/O ABNORMAL FINDINGS Diagnosis 07/21/2020 03:00:00 PM [facility] Results ID Date Data Source [id number] 09/21/2020 09:34:00 AM [facility] sena No cc. written on requisition form. ( AB) SPUTUM: - NEGATIVE FOR MALIGNANT CELLS - NUMEROUS BACTERIAL COLONIES AND YEAST/FUNGI ARE PRESENT COMMENT: [employer] preps and cell block containing squamous epithelial cells, alveolarmacrophages, PMNs, numerous bacterial colonies and numerous yeast/fungi. CODE/S: [id number] 65306 . Abnormal sputum.URINE CATHERIZED URINE VOIDED SPUTUM Sputum collected over three daysBRONCHIAL BRUSH MUCUS IN CYTORICH RED/PREP/SW/1BRONCHIAL WASH GASTRIC PLEURAL FLUID PERITONEAL FLUID PERICARDIAL FLUID CSF CELL BLOCK OTHER (SPECIFY) SEMEN ANALYSIS FINE NEEDLE ASPIRATION CERVICAL Selective cellular enrichment preps and cell block reviewed.Diagnosis supported by microscopic examination. Special stain performed at [facility] on the cell block is interpretedby me as follows -PAS - Positive for yeast/fungi and bacterial colonies -Control - Adequate REPORT SIGNED: Jesusita Pan DO 09/19/20 Name Value Range Interpretation Code Description Data Rosa rce(s) Supporting Document(s) ID Date Data Source [id number] 09/19/2020 05:31:00 PM EST [facility] sena No cc. written on requisition form. ( AB) SPUTUM: - NEGATIVE FOR MALIGNANT CELLS - NUMEROUS BACTERIAL COLONIES AND YEAST/FUNGI ARE PRESENT COMMENT: [employer] preps and cell block containing squamous epithelial cells, alveolarmacrophages, PMNs, numerous bacterial colonies and numerous yeast/fungi. CODE/S: 11652 [id number] 96973 . Abnormal sputum.URINE CATHERIZED URINE VOIDED SPUTUM Sputum collected over three daysBRONCHIAL BRUSH MUCUS IN CYTORICH RED/PREP/SW/1BRONCHIAL WASH GASTRIC PLEURAL FLUID PERITONEAL FLUID PERICARDIAL FLUID CSF CELL BLOCK OTHER (SPECIFY) SEMEN ANALYSIS FINE NEEDLE ASPIRATION CERVICAL Selective cellular enrichment preps and cell block reviewed.Diagnosis supported by microscopic examination. Special stain performed at [facility] on the cell block is interpretedby me as follows -PAS - Positive for yeast/fungi and bacterial colonies -Control - Adequate REPORT SIGNED: Jesusita Pan DO 09/19/20 Name Value Range Interpretation Code Description Data Rosa rce(s) Supporting Document(s) ID Date Data Source [id number] 09/08/2020 10:43:00 AM EST [facility] Name Value Range Interpretation Code Description Data Rosa rce(s) Supporting Document(s) CHOLESTEROL 147 mg/dL 0-[address] [facility] TRIGLYCERIDES 65 mg/dL 0-[address] [facility] LDL CHOLESTEROL 77 mg/dL 0-[address] [facility] HDL CHOLESTEROL 57 mg/dL 40-[address] [facility] CHOL/HDL RATIO 2.6 0.0-5.[address] [facility] ID Date Data Source [id number] 09/08/2020 10:43:00 AM EST [facility] Name Value Range Interpretation Code Description Data Rosa rce(s) Supporting Document(s) GLUCOSE 89 mg/dL 74-[address] [facility] BLOOD UREA NITROGEN 14 mg/dL 7-18 [facility] ital CREATININE 0.86 mg/dL 0.7-1.[address] [facility] SODIUM 139 mmol/L 136-[address] [facility] POTASSIUM 4.3 mmol/L 3.5-5.[address] [facility] CHLORIDE 101 mmol/L 98-[address] [facility] CO2 32 mmol/L 21-[address] [facility] CALCIUM 9.3 mg/dL 8.5-10.[address] [facility] ANION GAP 6.0 mmol/L 5-[address] [facility] GLOMERULAR FILTRATION RATE >90 mL/min [facility] GFR IS CALCULATED IN mL/min/1.73m2 KANNAN L FUNCTION: >90MILDLY DECREASED: 60-89MILDY TO MODERATELY DECREASED: 45-59 MODERATELY TO SEVERELY DECREASED: 30-44SEVERELY DECREASED: 15-29RENAL FAILURE: <15 AST 22 U/L 15-[address] [facility] ALT 29 U/L 12-[address] [facility] ALKALINE PHOSPHATASE 83 U/L 46-116 [facility] pital TOTAL BILIRUBIN 0.6 mg/dL 0.2-1.[address] [facility] TOTAL PROTEIN 7.1 g/dl 6.4-8.[address] [facility] ALBUMIN 4.3 gm/dL 3.4-5.[address] [facility] ID Date Data Source [id number] 09/08/2020 10:41:00 AM [facility] Name Value Range Interpretation Code Description Data Rosa rce(s) Supporting Document(s) TSH 0.503 uIU/mL 0.36-3.[address] [facility] ID Date Data Source [id number] 09/08/2020 10:41:00 AM [facility] Name Value Range Interpretation Code Description Data Rosa rce(s) Supporting Document(s) FREE T4 1.0 ng/dL 0.76-1.[address] [facility] ID Date Data Source [id number] 09/08/2020 10:25:00 AM [facility] Name Value Range Interpretation Code Description Data Rosa rce(s) Supporting Document(s) URINE COLOR. [facility] URINE APPEARANCE CLEAR [facility] URINE GLUCOSE (UA) NEGATIVE mg/dL NEGATIVE [facility] URINE BILIRUBIN NEGATIVE NEGATIVE [facility] URINE KETONE NEGATIVE mg/dL [facility]GATIVE [facility] SPECIFIC GRAVITY,URINE 1.020 1.001-1.[address] [facility] URINE BLOOD NEGATIVE NEGATIVE [facility] PH,URINE 7.5 5.0-9.[address] [facility] URINE PROTEIN NEGATIVE mg/dL NEGATIVE [facility] URINE UROBILINOGEN NORMAL(0.2-1) mg/dL 0-1 [facility] URINE NITRATE NEGATIVE NEGATIVE [facility] URINE LEUKOCYTE ESTERASE NEGATIVE NEGATIVE [facility] ID Date Data Source [id number] 09/08/2020 10:12:00 AM [facility] Name Value Range Interpretation Code Description Data [facility] Districte(s) Supporting Document(s) WHITE BLOOD COUNT 7.4 K/mm3 4.0-10.0 [facility] al RED BLOOD COUNT 4.90 M/mm3 4.50-6.00 [facility] HEMOGLOBIN 14.9 gm/dL 14.0-18.[address] [facility] HEMATOCRIT 41.9 % 42.0-54.[address] [facility] MEAN CELL VOLUME 85.5 fl 80-96 [facility] MEAN CORPUSCULAR HEMOGLOBIN 30.4 pg 27.0-31.0 [facility] MEAN CORPUSCULAR HGB CONC 35.6 g/dl 32.0-36.0 [facility] RED CELL DISTRIBUTION WIDTH 11.4 % 10.0-14.5 [facility] PLATELET COUNT 278 K/mm3 172-[address] [facility] MEAN PLATELET VOLUME 8.7 fl 9.0-13.0 L [facility] pital GRAN % 52.3 % 50-80.[address] [facility] IG% 0.1 % 0.0-0.[address] [facility] LYMPH % 32.4 % 25.0-50.[address] [facility] MONO % 8.9 % 2.0-10.[address] [facility] EOS % 5.6 % 0-5.[address] [facility] BASO % 0.7 % 0.0-2.[address] [facility] GRAN # 3.9 K/mm3 2.0-8.[address] [facility] IG# 0.0 K/mm3 0.0-0.[address] [facility] LYMPH # 2.4 K/mm3 1.0-5.[address] [facility] MONO # 0.7 K/mm3 0.10-1.[address] [facility] EOS # 0.4 K/mm3 0.0-0.[address] [facility] BASO # 0.1 K/mm3 0.0-0.[address] [facility] ID Date Data Source [id number] 07/31/2020 09:16:00 PM EST [facility] CHE[facility], FRONTAL AND LATERAL DATE OF EXAMI NATION: 07/31/2020 17:02 EST CHEST 2 VIEWS INDICATION: Productive cough COMPARISON: 12/18/2016 TECHNIQUE: Frontal and lateral views of the chest were obtained. FINDINGS: The chest wall and mediastinal structures are unremarkable. There isno pleural disease. The lungs are clear. IMPRESSION: No acute pulmonary disease Electronically signed in PS360 by: Romeo Wagoner M.D. 07/31/2020 21:10 EST Name Value Range Interpretation Code Description Data Rosa rce(s) Supporting Document(s) Procedure Vital Signs ID Date Data Source UNK Name Value Range Interpretation Code Description Data Source(s) Oxygen saturation in Arterial blood by Pulse oximetry 96 % 96 % eCW1 ([facility]) Respiratory rate 17 /min 17 /min eCW1 ([facility]) Heart rate 88 /min 88 /min eCW1 ([facility]) Body temperature 98.6 [degF] 98.6 [degF] eCW1 ( [facility]) Body mass index (BMI) [Ratio] 22.83 kg/m2 22.83 kg/m2 eCW1 ([facility]) Body weight 152.4 [lb_av] 152.4 [lb_av] eCW1 ([facility] [place] [facility]) Body height 68.5 [in_i] 68.5 [in_i] eCW1 ([facility]) Oxygen saturation in Arterial blood by Pulse oximetry 99 % 99 % eCW1 ([facility]) Respiratory rate 18 /min 18 /min eCW1 ([facility]) Heart rate 102 /min 102 /min eCW1 ([facility]) Body mass index (BMI) [Ratio] 23.31 kg/m2 23.31 kg/m2 eCW1 ([facility]) Body weight 155.6 [lb_av] 155.6 [lb_av] eCW1 ([facility] [place] [facility]) Body height 68.5 [in_i] 68.5 [in_i] eCW1 ([facility]) Oxygen saturation in Arterial blood by Pulse oximetry 98 % 98 % eCW1 ([facility]) Respiratory rate 18 /min 18 /min eCW1 ([facility]) Heart rate 77 /min 77 /min eCW1 ([facility]) Body temperature 97.3 [degF] 97.3 [degF] eCW1 ( [facility]) Body mass index (BMI) [Ratio] 22.89 kg/m2 22.89 kg/m2 eCW1 ([facility]) Body weight 152.8 [lb_av] 152.8 [lb_av] eCW1 ([facility] [place] [facility]) Body height 68.5 [in_i] 68.5 [in_i] eCW1 ([facility]) Oxygen saturation in Arterial blood by Pulse oximetry 98 % 98 % eCW1 ([facility]) Respiratory rate 20 /min 20 /min eCW1 ([facility]) Heart rate 96 /min 96 /min eCW1 ([facility]) Body temperature 98.8 [degF] 98.8 [degF] eCW1 ( [facility]) Body mass index (BMI) [Ratio] 22.86 kg/m2 22.86 kg/m2 eCW1 ([facility]) Body weight 152.6 [lb_av] 152.6 [lb_av] eCW1 ([facility] [place] [facility]) Body height 68.5 [in_i] 68.5 [in_i] eCW1 ([facility]) Patient Treatment Plan of Care Planned Activity Planned Date Details Description Data Source (s) Fluticasone Propionate 50 MCG/ACT 09/15/2020 12:00:00 AM EST eCW1 ([facility]) Ciprofloxacin 250 MG Oral Tablet [Cipro] 09/15/2020 12:00:00 AM EST eCW1 ([facility]) RA Nicotine Gum 4 MG 07/22/2020 12:00:00 AM EST eCW1 ([facility]) RA Nicotine Gum 4 MG 07/22/2020 12:00:00 AM EST eCW1 ([facility])
--- OUTSIDE RECORDS SUMMARY | 2020-10-20 17:13 | CCD ---
Author Author [facility] Organization [facility] Address Unknown Phone Unavailable Care Team Providers Care Fire Management Technician Name Role Phone Arline Calle Unavailable PROBLEMS Type Condition ICD9-CM Code [id number] Code Onset Dates Condition S tatus SNOMED Code Notes Problem Sore throat J02.9 Active 677062382 Problem Allergic rhinitis, seasonal J30.2 Active 3674 62039 Problem ADD (attention deficit disorder) F98.8 Active 876636400 Problem Essential hypertension I10 Active 79819200 Problem Chronic rhinitis J31.0 Active 01015931 Problem Constipation by delayed colonic transit K59.01 Active 18157470 Problem GERD without esophagitis K21.9 Active 2124559 05 Problem Smoking F17.200 Active 27315651 Problem Anxiety about health F41.8 Active 587716006 ALLERGIES Allergen (clinical drug ingredient) Drug/Non Drug Allergy do cumented on EMR Reaction Allergy Type Onset Date Status environmental sneezing Non Drug Allergy Activ e Gastrografin([facility] Code:[address]-55) vomiting Drug Aller gy Active ENCOUNTERS from 1993 to 2020-08-03 Encounter Location Date Provider Diagnosis [address] [address] Aug, Arline Calle IMMUNIZATIONS No Information SOCIAL [...] Twice a day for 30 day(s) Active Flonase 50 MCG/ACT 2 sprays Nasally Once a day for 90 days Oct, Active Cetirizine HCl 10 MG 1 tablet as needed Orally Once a day for 90 days Mar, Active Singulair 10 MG 1 tablet in the evening Orally Once a day for 90 days Active Protonix 40 MG 1 tablet Orally Once a day for 90 days Active Ibuprofen 800 MG 1 tablet Orally Three times a day for 30 day(s) Active Hydrochlorothiazide 25 MG 1 tablet Orally Once a day for 90 days Active PROCEDURES No Information RESULTS No Results REASON FOR VISIT ER Follow up MEDICAL (GENERAL) HISTORY Type Description Date [...] TREATMENT Next Appt Details Provider Name:Michael Payne, 08-18 03:00:00 PM, [address] [place] [address], [phone], Provider Name:Yudi Gallego, 2020-08-22 02:30:00 PM, [address] [place] [address], [phone], Insurance Providers Payer Name Payer Address Payer Phone Insured Name Patient Relati onship to Insured Coverage Start Date Coverage End Date BCBS OUT OF STATE [address] [address] [facility] [id number] DULCE GILLIAM self
--- OUTSIDE RECORDS SUMMARY | 2020-10-20 17:13 | CCD ---
Author Author [facility] Organization [facility] Address Unknown Phone Unavailable Care Team Providers Care Large Sheetfed Press Operator Name Role Phone Kristina Ruiz Unavailable Unavailable PROBLEMS Type Condition ICD9-CM Code [id number] Code Onset Dates Condition S tatus SNOMED Code Notes Problem Sore throat J02.9 Active 519185955 Problem Allergic rhinitis, seasonal J30.2 Active 3674 99973 Problem ADD (attention deficit disorder) F98.8 Active 556665429 Problem Essential hypertension I10 Active 33340775 Problem Chronic rhinitis J31.0 Active 71371728 Problem Constipation by delayed colonic transit K59.01 Active 17985012 Problem GERD without esophagitis K21.9 Active 2461250 05 Problem Smoking F17.200 Active 51424415 Problem Anxiety about health F41.8 Active 659575988 ALLERGIES Allergen (clinical drug ingredient) Drug/Non Drug Allergy do cumented on EMR Reaction Allergy Type Onset Date Status environmental sneezing Non Drug Allergy Activ e Gastrografin([facility] Code:[address]-62) vomiting Drug Aller gy Active ENCOUNTERS from 1993 to 2020-08-09 Encounter Location Date Provider Diagnosis [facility] [address] [place] [id number] Kristina Ruiz Voice hoarsenesses R49.0 IMMUNIZATIONS No Information SOCIAL HISTORY Sex Assigned At : Social History Observation Description Sex Assigned At Unknown REASON FOR REFERRAL No Information VITAL SIGNS Height 68.5 in Aug, Weight 152.8 lbs Aug, BMI 22.89 kg/m2 Aug, Temperature 97.3 degrees Fahrenheit Aug, Heart Rate 77 /min Aug, Respiratory Rate 18 /min Aug, Oximetry 98 % Aug, Blood pressure systolic 139 mmHg Aug, Blood pressure diastolic 82 mmHg Aug, MEDICATIONS Medication SIG (Take, Route, [...] Information RESULTS No Results REASON FOR VISIT Hoarseness MEDICAL (GENERAL) HISTORY Type Description Date Medical [...] Treatment Notes Treatm ent Clinical Notes Aug, Voice hoarsenesses (ICD-10 - R49.0) Pt advised f/u with Dr. Payne for further evaluation with flexible endoscope. Consider EGD procedure as well. Pt v/u and agreeable. PLAN OF TREATMENT Treatment Notes Assessment Notes Clinical Notes Voice hoarsenesses Pt advised f/u with Dr. Brown paz for further evaluation with flexible endoscope. Consider EGD procedure as well. Pt v/u and agreeable. Next Appt Details with Dr. Payne Reason: Provider Name:Michael Payne, 08-18 03:00:00 PM, [address] [place] [address], [phone], Provider Name:Yudi Gallego, 2020-08-22 02:30:00 PM, [address] [place] [address], [phone], Insurance Providers Payer Name Payer Address Payer Phone Insured Name Patient Relati onship to Insured Coverage Start Date Coverage End Date BCBS OUT OF STATE [address] [address] [facility] [address] DULCE GILLIAM self
--- OUTSIDE RECORDS SUMMARY | 2020-10-20 17:13 | CCD ---
Author Author [facility] Organization [facility] Address Unknown Phone Unavailable Care Team Providers Care Production Operator Name Role Phone Arline Calle Unavailable PROBLEMS Type Condition ICD9-CM Code [id number] Code Onset Dates Condition S tatus SNOMED Code Notes Problem Allergic rhinitis, seasonal J30.2 Active 3674 70629 Problem ADD (attention deficit disorder) F98.8 Active 673641014 Problem Constipation by delayed colonic transit K59.01 Active 65453562 Problem Chronic rhinitis J31.0 Active 04902495 Problem Sore throat J02.9 Active 618117154 Problem Asthma, unspecified asthma s everity, unspecified whether complicated, unspecified whether persistent J45.909 Active 26764 7001 Problem GERD without esophagitis K21.9 Active 0271650 05 Problem Smoking F17.200 Active 33102665 Problem Anxiety about health F41.8 Active 497956405 Problem Essential hypertension I10 Active 87607071 ALLERGIES Allergen (clinical drug ingredient) Drug/Non Drug Allergy do cumented on EMR Reaction Allergy Type Onset Date Status environmental sneezing Non Drug Allergy Activ e Gastrografin([facility] Code:[address]-43) vomiting Drug Aller gy Active ENCOUNTERS from 1993 to 2020-09-12 Encounter Location Date Provider Diagnosis [address] [address] Sep, Arline Calle IMMUNIZATIONS No Information SOCIAL [...] Information RESULTS No Results REASON FOR VISIT Lab results MEDICAL (GENERAL) HISTORY Type Description Date Medical [...] Details Provider Name:Michael Payne, 09-15 03:00:00 PM, [address] [place] [address], [phone], Provider Name:Yudi Gallego, 2020-10-03 02:30:00 PM, [address] [place] [address], [phone], Insurance Providers Payer Name Payer Address Payer Phone Insured Name Patient Relati onship to Insured Coverage Start Date Coverage End Date BCBS OUT OF STATE [address] [address] [facility] [address] [address] GILLIAM
--- OUTSIDE RECORDS SUMMARY | 2020-10-20 17:54 | CCD ---
Author Author [facility] Organization [facility] Address Unknown Phone Unavailable Care Team Providers Care Manager [place] Name Role Phone Emma BAY PA Unavailable [...] CHRISTOPHER PA Unavailable Unavailable Luc, L Arline STORY EDITOR Unavailable Unavailable [place], L Arline STORY EDITOR Unavailable Unavailable Luc, L Arline STORY EDITOR Unavailable Unavailable [place], L Arline STORY EDITOR Unavailable Unavailable Luc, L Arline STORY EDITOR Unavailable Unavailable Luc, L Arline STORY EDITOR Unavailable Unavailable [place], L Arline STORY EDITOR Unavailable Unavailable Luc, L Arline STORY EDITOR Unavailable Unavailable Luc, L Arline STORY EDITOR Unavailable Unavailable [place], L Arline STORY EDITOR Unavailable Unavailable [place], L Arline STORY EDITOR Unavailable Unavailable Luc, L Arline STORY EDITOR Unavailable Unavailable [place], L Arline STORY EDITOR Unavailable Unavailable Luc, L Arline STORY EDITOR Unavailable Unavailable [place], L Arline STORY EDITOR Unavailable Unavailable [place], L Arline STORY EDITOR Unavailable Unavailable [place], L Arline STORY EDITOR Unavailable Unavailable [place], L Arline STORY EDITOR Unavailable Unavailable Luc, L Arline STORY EDITOR Unavailable Unavailable Luc, L Arline STORY EDITOR Unavailable Unavailable Luc, L Arline STORY EDITOR Unavailable Unavailable Luc, L Arline STORY EDITOR Unavailable Unavailable [place], L Arline STORY EDITOR Unavailable Unavailable [place], L Arline STORY EDITOR Unavailable Unavailable [place], L Arline STORY EDITOR Unavailable Unavailable [place], L Arline STORY EDITOR Unavailable Unavailable [place], L Arline STORY EDITOR Unavailable Unavailable [place], L Arline STORY EDITOR Unavailable Unavailable [place], L Arline STORY EDITOR Unavailable Unavailable [place], L Arline STORY EDITOR Unavailable Unavailable Luc, L Arline STORY EDITOR Unavailable Unavailable [place], L Arline STORY EDITOR Unavailable Unavailable Coon, T Gregory PA-C Unavailable [...] BLANCHARD SR, LEI JENKINS MD Unavailable Unavailable Grulla, Yudi RPA-C Unavailable Unavailable Grulla, Yudi RPA-C Unavailable Unavailable Grulla, Yudi RPA-C Unavailable Unavailable Grulla, Yudi RPA-C Unavailable Unavailable Grulla, Yudi RPA-C Unavailable Unavailable Grulla, Yudi RPA-C Unavailable Unavailable Grulla, Yudi RPA-C Unavailable Unavailable Grulla, Yudi RPA-C Unavailable Unavailable Grulla, Yudi RPA-C Unavailable Unavailable Grulla, Yudi RPA-C Unavailable Unavailable Grulla, Yudi RPA-C Unavailable Unavailable Grulla, Yudi RPA-C Unavailable Unavailable Grulla, Yudi RPA-C Unavailable Unavailable Grulla, Yudi RPA-C Unavailable Unavailable Grulla, Yudi RPA-C Unavailable Unavailable Zion Bond Unavailable [...] MICHAELA Unavailable Unavailable KAVININ, Alexi. MOHAN Unavailable [phone] WERBLIN, Alexi. MOHAN Unavailable [phone] WERBLIN, AlexiPeter MOHAN Unavailable [phone] WERBLIN, AlexiPeter MOHAN Unavailable [phone] WERBLIN, AlexiPeter MOHAN Unavailable [phone] Sara, Reginayannick W Kristina SUPERVISOR PRODUCTION MANAGING-C Unavailable Unavailabl e Sara, Reginayannick W Kristina SUPERVISOR PRODUCTION MANAGING-C Unavailable Unavailabl e Sara, Reginayannick W Kristina SUPERVISOR PRODUCTION MANAGING-C Unavailable Unavailabl e Sara, Reginayannick W Kristina SUPERVISOR PRODUCTION MANAGING-C Unavailable Unavailabl e Sara, Reginayannick W Kristina SUPERVISOR PRODUCTION MANAGING-C Unavailable Unavailabl e Sara, Reginayannick W Kristina SUPERVISOR PRODUCTION MANAGING-C Unavailable Unavailabl e Sara, Reginayannick W Kristina SUPERVISOR PRODUCTION MANAGING-C Unavailable Unavailabl e Sara, Reginayannick W Kristina SUPERVISOR PRODUCTION MANAGING-C Unavailable Unavailabl e Sara, Reginah W Kristina SUPERVISOR PRODUCTION MANAGING-C Unavailable Unavailabl e Sara, Reginayannick W Kristina SUPERVISOR PRODUCTION MANAGING-C Unavailable Unavailabl e Sara, Reginayannick W Kristina SUPERVISOR PRODUCTION MANAGING-C Unavailable Unavailabl e Sara, Reginayannick W Kristina SUPERVISOR PRODUCTION MANAGING-C Unavailable Unavailabl e Sara, Reginayannick W Kristina SUPERVISOR PRODUCTION MANAGING-C Unavailable Unavailabl e Sara, Reginayannick W Kristina SUPERVISOR PRODUCTION MANAGING-C Unavailable Unavailabl e Sara, Reginayannick W Kristina SUPERVISOR PRODUCTION MANAGING-C Unavailable Unavailabl e Sara, Gabby Acevedo SUPERVISOR PRODUCTION MANAGING-C Unavailable Unavailabl e Sara, Gabby Lopeze SUPERVISOR PRODUCTION MANAGING-C Unavailable Unavailabl e Sara, Gabby Lopeze SUPERVISOR PRODUCTION MANAGING-C Unavailable Unavailabl e Sara, Gabby Lopeze SUPERVISOR PRODUCTION MANAGING-C Unavailable Unavailabl e Sara, Gabby Lopeze SUPERVISOR PRODUCTION MANAGING-C Unavailable Unavailabl e Sara, Gabby Lopeze SUPERVISOR PRODUCTION MANAGING-C Unavailable Unavailabl e Sara, Gabby Calderonyce SUPERVISOR PRODUCTION MANAGING-C Unavailable Unavailabl e Sara, Gabby Calderonyce SUPERVISOR PRODUCTION MANAGING-C Unavailable Unavailabl e Sara, Gabby Lopeze SUPERVISOR PRODUCTION MANAGING-C Unavailable Unavailabl e Sara, Gabby Calderonyce SUPERVISOR PRODUCTION MANAGING-C Unavailable Unavailabl e Sara, Gabby Lopeze SUPERVISOR PRODUCTION MANAGING-C Unavailable Unavailabl e Sara, Gabby Acevedo SUPERVISOR PRODUCTION MANAGING-C Unavailable Unavailabl e Sara, Gabby Lopeze SUPERVISOR PRODUCTION MANAGING-C Unavailable Unavailabl e Sara, Gabby Calderonyce SUPERVISOR PRODUCTION MANAGING-C Unavailable Unavailabl e Sara, Gabby Acevedo SUPERVISOR PRODUCTION MANAGING-C Unavailable Unavailabl e Sara, Gabby Acevedo SUPERVISOR PRODUCTION MANAGING-C Unavailable Unavailabl e Sara, Gabby Calderonyce SUPERVISOR PRODUCTION MANAGING-C Unavailable Unavailabl e FISHER, ADRIANA LAKE Unavailable Unavailable [place], L Arline STORY EDITOR Unavailable Unavailable Luc, L Arline STORY EDITOR Unavailable Unavailable Luc, L Arline STORY EDITOR Unavailable Unavailable [place], L Arline STORY EDITOR Unavailable Unavailable [place], L Arline STORY EDITOR Unavailable Unavailable [place], L Arline STORY EDITOR Unavailable Unavailable Luc, L Arline STORY EDITOR Unavailable Unavailable Luc, L Arline STORY EDITOR Unavailable Unavailable [place], L Arline STORY EDITOR Unavailable Unavailable [place], L Arline STORY EDITOR Unavailable Unavailable [place], L Arline STORY EDITOR Unavailable Unavailable [place], L Arline STORY EDITOR Unavailable Unavailable Luc, L Arline STORY EDITOR Unavailable Unavailable Luc, L Arline STORY EDITOR Unavailable Unavailable [place], L Arline STORY EDITOR Unavailable Unavailable [place], L Arline STORY EDITOR Unavailable Unavailable Luc, L Arline STORY EDITOR Unavailable Unavailable Luc, L Arline STORY EDITOR Unavailable Unavailable Luc, L Arline STORY EDITOR Unavailable Unavailable [place], L Arline STORY EDITOR Unavailable Unavailable [place], L Arline STORY EDITOR Unavailable Unavailable [facility], L Arline STORY EDITOR Unavailable Unavailable Luc, L Arline STORY EDITOR Unavailable Unavailable [place], L Arline STORY EDITOR Unavailable Unavailable Luc, L Arline STORY EDITOR Unavailable Unavailable Luc, L Arline STORY EDITOR Unavailable Unavailable Luc, L Arline STORY EDITOR Unavailable Unavailable Luc, L Arline STORY EDITOR Unavailable Unavailable [place], L Arline STORY EDITOR Unavailable Unavailable Luc, L Arline STORY EDITOR Unavailable Unavailable [place], L Arline STORY EDITOR Unavailable Unavailable Luc, L Arline STORY EDITOR Unavailable Unavailable Re-disclosure Warning The records that [...] is protected by Article 27-F of the [facility] Public Health law. If you continue you may have access to information: Regarding HIV / AIDS; Provided by facilities licensed or operated by the [facility] Office of Mental Health; or Provided by the [facility] Office for People With Developmental Disabilities. If such information is present, then the following [facility] mandated warning applies: This information has [...] law may result in a fine or nursing home sentence or both. A general authorization for the release of medical or other information is NOT sufficient authorization for further disc losure. Encounters Encounter Providers Location Date Indications Data Source(s ) Outpatient Attender: MICHAELA GALVAN 09/15/2020 02:54:00 PM [facility] Outpatient [facility] 09/15/2020 12:00:00 AM EST eCW1 ([facility]) Outpatient Attender: Arline FOLEY ER-LAB-PNP 09/14/2020 12:00:00 PM [facility] Outpatient [facility] 09/12/2020 12:00:00 AM EST eCW1 ([facility]) Outpatient Attender: Arline Calle RNPReferrer: Migue FOLEY EMERGENCY ROOM-LAB 09/08/2020 09:45:00 AM EST - 09/08/2020 09:45:00 AM [facility] Outpatient [facility] 09/05/2020 12:00:00 AM EST eCW1 ([facility]) Outpatient Attender: Yudi Gallego RPA-C 08/22/2020 02:15: 00 PM [facility] Outpatient [facility] 08/22/2020 12:00:00 AM EST eCW1 ([facility]) Outpatient [facility] 08/09/2020 12:00:00 AM EST eCW1 ([facility]) Outpatient Attender: JOCELYNE GERARD 08/03/2020 01:30:0 0 PM [facility] Outpatient Attender: Kristina Ruiz SUPERVISOR PRODUCTION MANAGING-C 08/02/2020 02:43:0 0 PM [facility] Outpatient [facility] 08/02/2020 12:00:00 AM EST eCW1 ([facility]) Outpatient [facility] 08/01/2020 12:00:00 AM EST eCW1 ([facility]) Outpatient [facility] 08/01/2020 12:00:00 AM EST eCW1 ([facility]) Outpatient Attender: Arline Calle RNPReferrer: Arline FOLEY 07/31/2020 04:55:00 PM EST - 07/31/2020 04:55:00 PM [facility]: Arline FOLEY 07/21/2020 03:00:00 PM [facility] Outpatient [facility] 07/21/2020 12:00:00 AM EST eCW1 ([facility]) Emergency Attender: ALEKSANDRA FISHERReferrer: GREGORY Bang SR 07/20/2019 02:51:00 PM [facility] - 07/20/2019 03:12:00 PM [facility] Patient discharged. Emergency Attender: ALEKSANDRA FISHERReferrer: GREGORY Bang SR 02/05/2019 01:15:00 PM EDT - 02/05/2019 01:45:00 PM EDT [facility] Patient discharged. Emergency Attender: JOCELYNE BAY PAReferrer: GREGORY BLANCHARD SR 07/28/2018 09:24:00 AM EST - 07/28/2018 10:29:00 AM [facility] Emergency Attender: JOCELYNE BAY PAReferrer : GREGORY BLANCHARD EMERGENCY ROOM-ER 01/19/2018 08:54:00 PM EDT - 01/19/2018 10:42:[address] [facility] Emergency Attender: ERIN DARNELL 10/31 04:57:00 PM EDT - 11/24/2017 05:55:[address] [facility] Outpatient Attender: GREGORY BLANCHARD SR EMERGENCY ROOM-LAB 11:13:00 AM EDT - 12/18/2016 11:13:[address] [facility] Outpatient Attender: Cassandra DARNELL 08/02/2016 05:14:0 0 PM [facility] Emergency Attender: MOHAN MENESES EMERGENCY ROOM-ER 05/26 04:40:00 PM EDT - 05/26/2016 07:24:[address] [facility] Emergency Attender: MOHAN MENESES 016 11:41:00 AM [facility] - 10/26/2015 01:38:00 PM [facility] Outpatient Attender: Gregory Coon PA-C 10/21/2014 12:00:00 PM [facility] Medications Medication Brand Name Start Date Product Form Dose Route Admi nistrative Instructions Pharmacy Instructions Status Indications Reaction Description Data Source(s) Fluticasone Propionate 50 MCG/ACT Fluticasone Propionate 50 MCG/ACT 09/15/2020 12:00:00 AM EST 2.0 {spray_in_each_nostril} acti ve Fluticasone Propionate 50 MCG/ACT eCW1 ([facility]) Ciprofloxacin 250 MG Oral Tablet [Cipro] Cipro 250 MG Cipro 250 MG 09/15/2020 12:00:00 AM EST 3.0 {tablet} active Ci pro 250 MG eCW1 ([facility]) RA Nicotine Gum 4 MG RA Nicotine Gum 4 MG 07/22/2020 12:00:00 AM EST active RA Nicotine Gum 4 MG eCW1 ([facility]) RA Nicotine Gum 4 MG RA Nicotine Gum 4 MG 07/22/2020 12:00:00 AM EST active RA Nicotine Gum 4 MG eCW1 ([facility]) Insurance Providers Payer name Policy type / Coverage type Policy ID Covered libertarian ID Covered libertarian's relationship to matthews Policy Matthews Plan Information [employer] P[place] 302/307 [id number] SP [id number] [employer]BS [place] [id number] S W [id number] [employer]BS [place] [id number] S W [id number] MEDICARE [id number] S [id number] MEDICAID [id number] S [id number] MEDICARE [id number] S [id number] [employer] [place] [id number] S [id number] [place] [place] [id number] S [id number] MEDICAID [id number] S [id number] [place] [employer] [id number] S [id number] [place]IC[place] [id number] S [id number] MEDICAID [id number] S [id number] [place] [employer] [id number] S [id number] [place] [id number] S [id number] [place] [employer] [id number] S [id number] [place] [id number] S [id number] MEDICAID [id number] S [id number] [place] 302/307 [id number] SP [id number] EMED[place] [id number] SP [id number] [place] [employer] [id number] S [id number] [place] [id number] S [id number] MEDICAID [id number] S [id number] SELF PAY UNAVAILABLE S UNAVAILA BLE MEDICAID [id number] S [id number] ANS-Medicaid [id number] ANSI-Commercial [id number] ANSI-Medicare Part B [id number] ANSI-Medicaid [id number] ANSI-Medicare Part B [id number] ANSI-Commercial [id number] MEDICAID [id number] S [id number] MEDICARE [id number] SP [id number] MEDICAID [id number] SP [id number] MEDICARE [id number] SP [id number] [place] [id number] S [id number] MEDICARE [id number] S [id number] MEDICARE A [id number] Self [id number] MEDICAID M [id number] Self [id number] MEDICAID - O/P EMERGENCY ROOM [id number] MEDICAID - CLINIC [id number] Problems, Conditions, and Diagnoses Code Display Name Description Problem Type Effective Dates Data Source(s) J32.9 [id number] Chronic sinusitis, unspecified location P zanelegary 09/15/2020 12:00:00 AM EST eCW1 ([facility] migue) J45.909 [id number] Asthma, unspecified asthma severity, unspecified whether complicated, unspecified whether persistent Problem 08/22/2020 12:00 :00 AM EST W1 ([facility]) F41.8 [id number] Anxiety about health Problem 07/23/2020 12:0 0:00 AM EST W1 ([facility]) J31.0 [id number] Chronic rhinitis Problem 07/21/2020 12:00:00 AM EST [facility] ([facility]) I10 [id number] Essential hypertension Problem 07/21/2020 12 :00:00 AM EST W1 ([facility]) F17.200 [id number] Smoking Problem 07/21/2020 12:00:00 AM [place] [address] ([facility]) K21.9 [id number] GERD without esophagitis Problem 07/21/2020 12:00:00 AM EST [facility] ([facility]) R49.0 Dysphonia DYSPHONIA Diagnosis 09/15/2020 02:54:00 PM [facility] J32.9 Chronic sinusitis, unspecified CHRONIC SINUSITIS, UNSP ECIFIED Diagnosis 09/15/2020 02:54:00 PM [facility] R09.3 Abnormal sputum ABNORMAL SPUTUM Diagnosis 09/14/2020 12:0 0:00 PM [facility] K21.9 Gastro-esophageal reflux disease without esophagitis GASTRO-ESOPHAGEAL REFLUX DISEASE WITHOUT Diagnosis 09/08/2020 09:45:00 AM [facility] ital I10 Essential (primary) hypertension ESSENTIAL (PRIMARY) H YPERTENSION Diagnosis 09/08/2020 09:45:00 AM [facility] R09.3 Abnormal sputum ABNORMAL SPUTUM Diagnosis 09/08/2020 09:4 5:00 AM [facility] F17.210 Nicotine dependence, cigarettes, uncompl icated NICOTINE DEPENDENCE, CIGARETTES, UNCOMPLICATED Diagnosis 08/22/2020 02:15:00 PM [facility] ospital J45.909 Unspecified asthma, uncomplicated UNSPECIFIED THMA, UNCOMPLICATED Diagnosis 08/22/2020 02:15:00 PM [facility] K64.9 Unspecified hemorrhoids UNSPECIFIED HEMORRHOIDS Diagno sis 08/22/2020 02:15:00 PM [facility] R05 Cough COUGH Diagnosis 08/22/2020 02:15:00 PM [facility] K64.5 Perianal venous thrombosis PERIANAL VENOUS THROMBOSIS Diagnosis 08/03/2020 01:30:00 PM [facility] Z28.21 Immunization not carried out because of patient refusal IMMUNIZATION NOT CARRIED OUT BECAUSE OF PATIENT RE Diagnosis 07/21/2020 03:00:00 PM [facility] F41.8 Other specified anxiety disorders OTHER SPECIFIE D ANXIETY DISORDERS Diagnosis 07/21/2020 03:00:00 PM [facility] J31.0 Chronic rhinitis CHRONIC RHINITIS Diagnosis 07/21/2020 03 :00:00 PM [facility] R07.89 Other chest pain OTHER CHEST PAIN Diagnosis 07/21/2020 03 :00:00 PM [facility] Z00.00 Encounter for general adult medical examination without abnormal findings ENCNTR FOR GENERAL ADULT MEDICAL EXAM W/O ABNORMAL FINDINGS Diagnosis 07/21/2020 03:00:00 PM [facility] Results ID Date Data Source [id number] 09/21/2020 09:34:00 AM [facility] sena No cc. written on requisition form. ( AB) SPUTUM: - NEGATIVE FOR MALIGNANT CELLS - NUMEROUS BACTERIAL COLONIES AND YEAST/FUNGI ARE PRESENT COMMENT: Sure[employer] preps and cell block containing squamous epithelial cells, alveolarmacrophages, PMNs, numerous bacterial colonies and numerous yeast/fungi. CODE/S: [id number] . Abnormal sputum.URINE CATHERIZED URINE VOIDED SPUTUM [...] rce(s) Supporting Document(s) ID Date Data Source [id number] 09/19/2020 05:31:00 PM EST [facility] sena No cc. written on requisition form. ( AB) SPUTUM: - NEGATIVE FOR MALIGNANT CELLS - NUMEROUS BACTERIAL COLONIES AND YEAST/FUNGI ARE PRESENT COMMENT: [employer] preps and cell block containing squamous epithelial cells, alveolarmacrophages, PMNs, numerous bacterial colonies and numerous yeast/fungi. CODE/S: [id number] . Abnormal sputum.URINE CATHERIZED URINE VOIDED SPUTUM [...] rce(s) Supporting Document(s) ID Date Data Source [id number] 09/08/2020 10:43:00 AM EST [facility] Name Value Range Interpretation Code Description Data Rosa rce(s) Supporting Document(s) CHOLESTEROL 147 mg/dL 0-200 [facility] TRIGLYCERIDES 65 mg/dL 0-150 [facility] LDL CHOLESTEROL 77 mg/dL 0-100 [facility] HDL CHOLESTEROL 57 mg/dL 40-60 [facility] CHOL/HDL RATIO 2.6 0.0-5.0 [facility] ID Date Data Source [id number] 09/08/2020 10:43:00 AM EST [facility] Name Value Range Interpretation Code Description Data Rosa rce(s) Supporting Document(s) GLUCOSE 89 mg/dL 74-106 [facility] BLOOD UREA NITROGEN 14 mg/dL 7-18 [facility] ital CREATININE 0.86 mg/dL 0.7-1.3 [facility] SODIUM 139 mmol/L 136-145 [facility] POTASSIUM 4.3 mmol/L 3.5-5.1 [facility] CHLORIDE 101 mmol/L 98-107 [facility] CO2 32 mmol/L 21-32 [facility] CALCIUM 9.3 mg/dL 8.5-10.1 [facility] ANION GAP 6.0 mmol/L 5-12 [facility] GLOMERULAR FILTRATION RATE >90 mL/min [facility] GFR IS CALCULATED IN mL/min/1.73m2 KANNAN L FUNCTION: >90MILDLY DECREASED: 60-89MILDY TO MODERATELY DECREASED: 45-59 MODERATELY TO SEVERELY DECREASED: 30-44SEVERELY DECREASED: 15-29RENAL FAILURE: <15 AST 22 U/L 15-37 [facility] ALT 29 U/L 12-78 [facility] ALKALINE PHOSPHATASE 83 U/L 46-116 [facility] pital TOTAL BILIRUBIN 0.6 mg/dL 0.2-1.0 [facility] TOTAL PROTEIN 7.1 g/dl 6.4-8.2 [facility] ALBUMIN 4.3 gm/dL 3.4-5.0 [facility] ID Date Data Source [id number] 09/08/2020 10:41:00 AM [facility] Name Value Range Interpretation Code Description Data Rosa rce(s) Supporting Document(s) TSH 0.503 uIU/mL 0.36-3.74 [facility] ID Date Data Source [id number] 09/08/2020 10:41:00 AM [facility] Name Value Range Interpretation Code Description Data Rosa rce(s) Supporting Document(s) FREE T4 1.0 ng/dL 0.76-1.46 [facility] ID Date Data Source [id number] 09/08/2020 10:25:00 AM [facility] Name Value Range Interpretation Code Description Data Rosa rce(s) Supporting Document(s) URINE COLOR. [facility] URINE APPEARANCE CLEAR [facility] l URINE GLUCOSE (UA) NEGATIVE mg/dL NEGATIVE [facility] URINE BILIRUBIN NEGATIVE NEGATIVE [facility] URINE KETONE NEGATIVE mg/dL [facility]IVE [facility] SPECIFIC GRAV[facility],URINE 1.020 1.001-1.035 [facility] URINE BLOOD NEGATIVE NEGATIVE [facility] PH,URINE 7.5 5.0-9.0 [facility] URINE PROTEIN NEGATIVE mg/dL NEGATIVE [facility] UR[facility] UROBILINOGEN NORMAL(0.2-1) mg/dL 0-1 [facility] URINE NITRATE NEGATIVE NEGATIVE [facility] URINE LEUKOCYTE ESTERASE NEGATIVE NEGATIVE [facility] ID Date Data Source [id number] 09/08/2020 10:12:00 AM [facility] Name Value Range Interpretation Code Description Data [facility] Supporting Document(s) WHITE BLOOD COUNT 7.4 K/mm3 4.0-10.0 [facility] al RED BLOOD COUNT 4.90 M/mm3 4.50-6.00 [facility] HEMOGLOBIN 14.9 gm/dL 14.0-18.0 [facility] HEMATOCRIT 41.9 % 42.0-54.0 L [facility] MEAN CELL VOLUME 85.5 fl 80-96 [facility] MEAN CORPUSCULAR HEMOGLOBIN 30.4 pg 27.0-31.0 [facility] MEAN CORPUSCULAR HGB CONC 35.6 g/dl 32.0-36.0 [facility] RED CELL DISTRIBUTION WIDTH 11.4 % 10.0-14.5 [facility] PLATELET COUNT 278 K/mm3 172-450 [facility] MEAN PLATELET VOLUME 8.7 fl 9.0-13.0 L [facility] pital GRAN % 52.3 % 50-80.0 [facility] IG% 0.1 % 0.0-0.2 [facility] LYMPH % 32.4 % 25.0-50.0 [facility] MONO % 8.9 % 2.0-10.0 [facility] EOS % 5.6 % 0-5.0 H [facility] BASO % 0.7 % 0.0-2.0 [facility] GRAN # 3.9 K/mm3 2.0-8.00 [facility] IG# 0.0 K/mm3 0.0-0.2 [facility] LYMPH # 2.4 K/mm3 1.0-5.0 [facility] MONO # 0.7 K/mm3 0.10-1.20 [facility] EOS # 0.4 K/mm3 0.0-0.5 [facility] BASO # 0.1 K/mm3 0.0-0.2 [facility] ID Date Data Source [id number] 07/31/2020 09:16:00 PM [facility], FRONTAL AND LATERAL DATE OF [...] Pulse oximetry 96 % 96 % eCW1 ([facility]) Respiratory rate 17 /min 17 /min eCW1 ([facility]) Heart rate 88 /min 88 /min eCW1 ([facility]) Body temperature 98.6 [degF] 98.6 [degF] eCW1 ( [facility]) Body mass index (BMI) [Ratio] 22.83 kg/m2 22.83 kg/m2 eCW1 ([facility]) Body weight 152.4 [lb_av] 152.4 [lb_av] eCW1 ([facility]) Body height 68.5 [in_i] 68.5 [in_i] eCW1 ([facility]) Oxygen saturation in Arterial blood by Pulse oximetry 99 % 99 % eCW1 ([facility]) Respiratory rate 18 /min 18 /min eCW1 ([facility]) Heart rate 102 /min 102 /min eCW1 ([facility]) Body mass index (BMI) [Ratio] 23.31 kg/m2 23.31 kg/m2 eCW1 ([facility]) Body weight 155.6 [lb_av] 155.6 [lb_av] eCW1 ([facility]) Body height 68.5 [in_i] 68.5 [in_i] eCW1 ([facility]) Oxygen saturation in Arterial blood by Pulse oximetry 98 % 98 % eCW1 ([facility]) Respiratory rate 18 /min 18 /min eCW1 ([facility]) Heart rate 77 /min 77 /min eCW1 ([facility]) Body temperature 97.3 [degF] 97.3 [degF] eCW1 ( [facility]) Body mass index (BMI) [Ratio] 22.89 kg/m2 22.89 kg/m2 eCW1 ([facility]) Body weight 152.8 [lb_av] 152.8 [lb_av] eCW1 ([facility]) Body height 68.5 [in_i] 68.5 [in_i] eCW1 ([facility]) Oxygen saturation in Arterial blood by Pulse oximetry 98 % 98 % eCW1 ([facility]) Respiratory rate 20 /min 20 /min eCW1 ([facility]) Heart rate 96 /min 96 /min eCW1 ([facility]) Body temperature 98.8 [degF] 98.8 [degF] eCW1 ( [facility]) Body mass index (BMI) [Ratio] 22.86 kg/m2 22.86 kg/m2 eCW1 ([facility]) Body weight 152.6 [lb_av] 152.6 [lb_av] eCW1 ([facility]) Body height 68.5 [in_i] 68.5 [in_i] eCW1 ([facility]) Patient Treatment Plan of Care Planned Activity Planned Date Details Description Data Source (s) Fluticasone Propionate 50 MCG/ACT 09/15/2020 12:00:00 AM EST eCW1 ([facility]) Ciprofloxacin 250 MG Oral Tablet [Cipro] 09/15/2020 12:00:00 AM EST eCW1 ([facility]) RA Nicotine Gum 4 MG 07/22/2020 12:00:00 AM EST eCW1 ([facility]) RA Nicotine Gum 4 MG 07/22/2020 12:00:00 AM EST eCW1 ([facility])
[2020-10-20] MEDS ORDERED: AUGM875T28 PO (18:24)
[2020-10-20] MEDS ORDERED: KETOROLAC 60MG 2ML VIAL IM ONE (18:30)
[2020-10-20 18:34] VITALS: BP 124/88
== END 2020-10-20 18:48 | disposition home or self-care (01) ==
LOC: M ED 17:04
DX: K04.7 Periapical abscess without sinus (principal); K02.9 Dental caries, unspecified; K08.89 Other specified disorders of teeth and supporting structures; K21.9 Gastro-esophageal reflux disease without esophagitis; J45.909 Unspecified asthma, uncomplicated; F17.200 Nicotine dependence, unspecified, uncomplicated; Z79.899 Other long term (current) drug therapy; Z88.8 Allergy status to other drugs, medicaments and biological substances
CPT/HCPCS: 96372; 99283; J1885